=== PATIENT | female | born 1985 | race Caucasian/White ===

== ENCOUNTER 2016-05-18 17:05 | Emergency (ER) | payer OTHER ==
[2016-05-18 17:10] VITALS: BP 108/68; PULSE 72; TEMP 97.4; BMI 28.2
--- NOTE | 2016-05-18 17:30 | PDOC ---
History of Present Illness - General Chief Complaint: Injury Stated Complaint: INJURY Time Seen by Provider: 05/18/16 17:15 History Source: Patient Exam Limitations: No Limitations - History of Present Illness Initial Comments: CHIEF COMPLAINT: 30 y/o afebrile female with no significant PMH c/o back pain s /p fall yesterday. HISTORY OF PRESENT ILLNESS: The patient states that she was sitting in her chair at work and leaned back. When she leaned back the chair fell backwards and landed on her back in the chair. The patient states her back really didn't hurt yesterday but this morning it was really sore. She states her low back hurts on both sides and her left upper back hurts. She denies head trauma, LOC , midline neck pain, f/c, n/v/d, CP, SOB, midline LBP, saddle anesthesia, bowel Vital signs on arrival are within normal limits. REVIEW OF SYSTEMS: GENERAL/CONSTITUTIONAL: No fever/chills. No weakness. No weight change. HEAD, EYES, EARS, NOSE AND THROAT: No change in vision. No ear pain or discharge. No sore throat. GENITOURINARY: No dysuria, frequency, or change in urination. MUSCULOSKELETAL: No joint or muscle swelling or pain. No neck pain. +upper and lower back pain. SKIN: No rash or easy bruising. NEUROLOGIC: No headache, vertigo, loss of consciousness, or loss of sensation. PHYSICAL EXAM: GENERAL: The patient is awake, alert, and fully oriented, in no acute distress. She is ambulatory but sits down slowly. HEAD: Normal with no signs of trauma. ENT: Pupils equal, round and reactive to light, extraocular movements intact, sclera anicteric, conjunctiva clear. NECK: Full ROM of cervical spine without pain. EXTREMITIES: Normal range of motion, no edema. BACK: No midline lumbar, thoracic or cervical spine TTP or step offs. TTP of left cervical paravertebral muscles. TTP of b/l lumbar paravertebral muscles. NEUROLOGICAL: Normal speech, normal gait. CN II-XII grossly intact. No saddle anesthesia. PSYCH: Normal mood, normal affect. SKIN: Warm, dry, normal turgor, no rashes or lesions noted. Past History - Past Medical History Allergies/Adverse Reactions: Allergies Allergy/AdvReac Type Severity Reaction Status Date / Time No Known Allergies Allergy Verified 05/18/16 17:07 Home Medications: Ambulatory Orders Metoprolol Tartrate [Lopressor] 25 mg PO DAILY 08/15/12 Cardiac Disorders: Yes (OPEN HEART SX, PULMONARY STENOSIS) - Surgical History Cardiac Surgery: Yes (OPEN HEART SX) - Psycho/Social/Smoking Cessation Hx Anxiety: No Suicidal Ideation: No Smoking Status: Yes Smoking History: Current every day smoker Have you smoked in the past 12 months: Yes Number of Cigarettes Smoked Daily: 6 Information on smoking cessation initiated: Yes 'Breaking Loose' booklet given: 05/18/16 Hx Alcohol Use: No Drug/Substance Use Hx: No Substance Use Type: None *Physical Exam - Vital Signs Last Vital Signs Temp Pulse Resp BP Pulse Ox 97.4 F L 72 18 108/68 100 05/18/16 17:07 05/18/16 17:07 05/18/16 17:07 05/18/16 17:07 05/18/16 17:07 Medical Decision Making - Medical Decision Making A/P: 30 y/o female with upper and lower back pain that is musculoskeletal in nature s/p fall yesterday. Plan is as follows: 1. hcg 2. Xray cervical and lumbar spine hcg - negative IM Toradol ordered Xray cervical spine IMPRESSION: STraightening; otherwise normal study xray lumbar spine IMPRESSION: Normal study. Gave patient her results. Suggested 600mg of Ibuprofen every 6 hours with food for pain, heating pad, massage and stretching. Pt also instructed to avoid heavy lifting, follow up with her PCP and return to the ER with any worsening or concerning symptoms. The patient verbalizes understanding of all instructions, has no further questions and is awaiting discharge. *DC/Admit/Observation/Transfer Diagnosis at time of Disposition: Back pain Qualifiers: Chronicity: acute Back pain laterality: bilateral Sciatica presence: without sciatica - Discharge Dispostion Disposition: HOME Condition at time of disposition: Good - Referrals Referrals: Joselin Land MD [Primary Care Provider] - - Patient Instructions Printed Discharge Instructions: DI for Low Back Pain, DI for Thoracic Back Pain Additional Instructions: Discharge Instructions: -Take 600mg of Ibuprofen every 6 hours with food for pain -Use heating pad and massage to help with back pain -Avoid heavy lifting -Follow up with your doctor -Return to the ER with any worsening or concerning symptoms
[2016-05-18] MEDS ORDERED: KETOROLAC TROMETHAMINE 60 MG/2 ML VIAL IM ONE (17:44)
[2016-05-18] MEDS ORDERED: KETOROLAC TROMETHAMINE 60 MG/2 ML VIAL ONE (17:50)
== END 2016-05-18 18:52 | disposition home or self-care (01) ==
LOC: JERFT 17:05
PROC: 3E0233Z Introduction of Anti-inflammatory into Muscle, Percutaneous Approach (ICD-10-PCS; principal; 2016-05-18)
DX: M54.89 Other dorsalgia (principal); F17.210 Nicotine dependence, cigarettes, uncomplicated; Q25.6 Stenosis of pulmonary artery; I51.9 Heart disease, unspecified
CPT/HCPCS: 72050-TC; 72100-TC; 84703; 99281-25

== ENCOUNTER 2020-01-23 22:38 | Emergency (ER) | payer BC ==
[2020-01-23 22:45] VITALS: BP 138/59; PULSE 105; TEMP 97.9; BMI 29.9
--- NOTE | 2020-01-23 23:02 | PDOC ---
History of Present Illness - General Chief Complaint: Pain, Acute Stated Complaint: FALL Time Seen by Provider: 01/23/20 22:53 History Source: Patient Exam Limitations: No Limitations - History of Present Illness Initial Comments: 01/23/20 23:03 HISTORY OF PRESENT ILLNESS: 34-year-old woman past medical history of pulmonary stenosis status post repair presents emergency department for evaluation of right knee pain for 2 weeks status post fall. Patient reports she was playing with her child when she lost her balance falling to the ground landing on her hands and knees on a hardwood floor. Patient reports she had swelling to both knees but is concerned as the right knee has continued to be swelling and she has a "burning sensation" to her right knee. She states approximately 1 week ago she was playing with her child when he bumped into your causing her to fall to the ground with her right knee. No recent travel or sick contacts. PAST MEDICAL HISTORY: See HPI SURGICAL HISTORY: Denies ALLERGIES: No known drug allergies REVIEW OF SYSTEMS General/Constitutional: Denies fever or chills. Denies weakness, weight change. HEENT: Denies change in vision. Denies ear pain or discharge. Denies sore throat. Cardiovascular: Denies chest pain or shortness of breath. Respiratory: Denies cough, wheezing, or hemoptysis. Gastrointestinal: Denies nausea, vomiting, diarrhea or constipation. Denies rectal bleeding. Genitourinary: Denies dysuria, frequency, or change in urination. Musculoskeletal: See HPI Skin and breasts: Denies rash or easy bruising. Neurologic: Denies headache, vertigo, loss of consciousness, or loss of sensation. Psychiatric: Denies depression or anxiety. Endocrine: Denies increased thirst. Denies abnormal weight change. Hematologic/Lymphatic: Denies anemia, easy bleeding, or history of blood clots. Allergic/Immunologic: Denies hives or skin allergy. Denies latex allergy. PHYSICAL EXAM General Appearance: Well-appearing, appropriately dressed. No apparent distress, no intoxication. Vascular Pulses: Dorsalis-Pedis (R): 2+, Dorsalis-Pedis (L): 2+ Musculoskeletal/Extremities: Normal inspection. No bony tenderness to extremities, pedal edema, erythema or deformity. Tenderness present in the suprapatellar region of the right knee. Able to fully extend his right knee in flexion greater than 90 degrees performed actively. Ambulatory without difficulty. Neurovascularly intact. Integumentary: Appropriate color, dry, warm. No cyanosis, erythema, jaundice or rash Past History - Medical History Allergies/Adverse Reactions: Allergies Allergy/AdvReac Type Severity Reaction Status Date / Time No Known Allergies Allergy Verified 05/18/16 17:07 Home Medications: Ambulatory Orders Metoprolol Tartrate [Lopressor] 25 mg PO DAILY 08/15/12 Cardiac Disorders: Yes (OPEN HEART SX, PULMONARY STENOSIS) COPD: No - Surgical History Cardiac Surgery: Yes (OPEN HEART SX) - Reproductive History Is Patient Now?: No - Psycho-Social/Smoking History Smoking Status: Yes Smoking History: Current every day smoker Have you smoked in the past 12 months: Yes Number of Cigarettes Smoked Daily: 9 Information on smoking cessation initiated: No 'Breaking Loose' booklet given: 05/18/16 - Substance Abuse Hx (Audit-C & DAST Scrn) How often the patient has a drink containing alcohol: Monthly or less How often the patient has six or more drinks on one occasion: Less than monthly Score: In Men: 4 or > Positive; In Women: 3 or > Positive: 2 Screen Result (Pos requires Nsg. Audit-10AR): Negative In the last yr the pt used illegal drug/Rx for NonMed reason: No Score: Yes response is considered Positive: 0 Screen Result (Positive result requires Nsg. DAST-10): Negative *Physical Exam - Vital Signs Last Vital Signs Temp Pulse Resp BP Pulse Ox 97.9 F 105 H 19 138/59 L 100 01/23/20 22:41 01/23/20 22:41 01/23/20 22:41 01/23/20 22:41 01/23/20 22:41 Medical Decision Making - Medical Decision Making 01/23/20 23:06 A/P: 34-year-old woman with persistent right knee pain status post fall 2 weeks ago Tenderness presents to the suprapatellar region of right knee Full extension of the right knee and flexion greater than 90 degrees obtained actively X-rays Patient is refusing analgesia at this time Reassess Anticipate discharge with orthopedic follow-up 01/23/20 23:26 X-ray of the right knee as read by me: No acute fractures or dislocations present. [place] view reveals normal-appearing patella. Questionable joint effusion present in the suprapatellar space. Likely needs MRI for continued evaluation Discharge home with orthopedic follow-up Portions of this note have been documented using voice recognition software. As a result, errors may occur in the director institution process. Effort has been made to correct all grammatical and director institution error, but some may have been missed which may produce sporadic inaccurate director institution or nonsensical phrases. Discharge - Discharge Information Problems reviewed: Yes Clinical Impression/Diagnosis: Right knee pain Qualifiers: Chronicity: acute Qualified Code(s): M25.561 - Pain in right knee Condition: Stable Disposition: HOME - Admission No - Follow up/Referral Referrals: Joselin Land MD [Primary Care Provider] - Ulices Murrieta DO [Staff Physician] - - Patient Discharge Instructions Additional Instructions: [email or web address] You be given a referral for an orthopedist. Call to schedule appointment for reevaluation of your pain. Your emergency department visit is incomplete until you follow-up with your regular doctor. Take Tylenol 2-500 mg tablets every 6 hours as needed for pain. Take Motrin 3-200 mg tablets every 6 hours as needed for pain. These medications do not require a prescription as they are [id number]. Apply ice to affected areas to help relieve pain. Do not leave ice on for more than 20 minutes at a time. Return to the emergency department for any new or worsening symptoms. Thank you very much for choosing us to provide your emergent health care needs. - Post Discharge Activity Work/Back to School Note: Back to Work
--- OUTSIDE RECORDS SUMMARY | 2020-01-24 07:25 | XMS ---
:1985 Author Organization [facility] Care Team Providers Name Role Phone Coloka-Kump, Rodika DO Unavailable Unavailable Coloka-Kump, Rodika DO Unavailable Unavailable Coloka-Kump, Rodika DO Unavailable Unavailable Coloka-Kump, Rodika DO Unavailable Unavailable Coloka-Kump, Rodika DO Unavailable Unavailable Coloka-Kump, Rodika DO Unavailable Unavailable Coloka-Kump, Rodika DO Unavailable Unavailable Coloka-Kump, Rodika DO Unavailable Unavailable Coloka-Kump, Rodika DO Unavailable Unavailable Coloka-Kump, Rodika DO Unavailable Unavailable Coloka-Kump, Rodika DO Unavailable Unavailable Coloka-Kump, Rodika DO Unavailable Unavailable Coloka-Kump, Rodika DO Unavailable Unavailable Coloka-Kump, Rodika DO Unavailable Unavailable Coloka-Kump, Rodika DO Unavailable Unavailable Coloka-Kump, Rodika DO Unavailable Unavailable Coloka-Kump, Rodika DO Unavailable Unavailable Re-disclosure Warning The records that you are about to access may contain information from federally- assisted alcohol or drug abuse programs. If such information is present, then the following federally mandated warning applies: This information has been disclosed to you from records protected by federal confidentiality rules (42 CFR part 2). The federal rules prohibit you from making any further disclosure of this information unless further disclosure is expressly permitted by the written consent of the person to whom it pertains or as otherwise permitted by 42 CFR part 2. A general authorization for the release of medical or other information is NOT sufficient for this purpose. The Federal rules restrict any use of the information to criminally investigate or prosecute any alcohol or drug abuse patient.The records that you are about to access may contain highly sensitive health information, the redisclosure of which is protected by Article 27-F of the [facility] Public Health law. If you continue you may haveaccess to information: Regarding HIV / AIDS; Provided by facilities licensed or operated by the [facility] Office of Mental Health; or Provided by the [facility] Office for People With Developmental Disabilities. If such information is present, then the following [facility] mandated warning applies: This information has been disclosed to you from confidential records which are protected by state law. State law prohibits you from making any further disclosure of this information without the specific written consent of the person to whom it pertains, or as otherwise permitted by law. Any unauthorized further disclosure in violation of state law may result in a fine or fpc sentence or both. A general authorization for the release of medical or other information is NOT sufficient authorization for further disclosure. Allergies and Adverse Reactions Type Description Substance Reaction Status Data Source(s ) Drug allergy Valtrex valacyclovir swollen lip Active eCW1 ([facility]) Drug allergy Percocet acetaminophen / Unknown Active eCW1 (S aint oxycodone [facility]) Adverse Reaction Percocet Percocet Info Not Active eCW1 ([facility]) Adverse Reaction Valtrex Valtrex swollen Active eCW1 ([facility]) Adverse Reaction Percocet Percocet Info Not Active eCW1 ( int [facility]) Adverse Reaction Valtrex Valtrex swollen Active eCW1 ([facility]) Drug allergy Percocet acetaminophen / Unknown Active eCW1 (S aint oxycodone [facility]) No Information No Information No Information eC W1 ([facility]) No Information No Information No Information eC W1 ([facility]) No Information No Information No Information eC W1 ([facility]) No Information No Information No Information eC W1 ([facility]) No Information No Information No Information eC W1 ([facility]) No Information No Information No Information eC W1 ([facility]) No Information No Information No Information eC W1 ([facility]) No Information No Information No Information eC W1 ([facility]) No Information No Information No Allergy eCW1 ( [facility]) Propensity to Propensity to No Known allergies eCW1 ([facility] adverse adverse [facility] reactions reactions Medical (disorder) (disorder) Practice PC) Propensity to Propensity to No Known allergies eCW1 ([facility] adverse adverse [facility]ago reactions reactions Medical (disorder) (disorder) Practice PC) Propensity to Propensity to No Known allergies eCW1 ([facility] adverse adverse [facility]ago reactions reactions Medical (disorder) (disorder) Practice PC) Propensity to Propensity to No Known allergies eCW1 ([facility] adverse adverse [facility]ago reactions reactions Medical (disorder) (disorder) Practice PC) Propensity to Propensity to No Known allergies eCW1 ([facility] adverse adverse Mago reactions reactions Medical (disorder) (disorder) Practice PC) Propensity to Propensity to No Known allergies eCW1 ([facility] adverse adverse [facility]ago reactions reactions Medical (disorder) (disorder) Practice PC) Propensity to Propensity to No Known allergies eCW1 ([facility] adverse adverse Mago reactions reactions Medical (disorder) (disorder) Practice PC) Propensity to Propensity to No Known allergies eCW1 ([facility] adverse adverse Mago reactions reactions Medical (disorder) (disorder) Practice PC) Propensity to Propensity to No Known allergies eCW1 ([facility] adverse adverse Mago reactions reactions Medical (disorder) (disorder) Practice PC) Propensity to Propensity to No Known allergies eCW1 ([facility] adverse adverse Mago reactions reactions Medical (disorder) (disorder) Practice PC) Encounters Encounter Providers Location Date Indications Data Source(s ) (TEL) [address] 01/11/2020 eCW1 ([facility] 12:00:00 [facility] Medic al AM EDT Practice PC) (TEL) [address] 12/06/2019 eCW1 ([facility] 12:00:00 [facility] al AM EDT Practice PC) Outpatient [address] 11/13/2019 eCW1 ([facility] 12:00:00 [facility] Medic al AM EDT Practice PC) (TEL) [address] 10/16/2019 eCW1 ([facility] 12:00:00 [facility] Medic al AM EDT Practice PC) (TEL) [address] 10/05/2019 eCW1 ([facility] 12:00:00 [facility] Medic al AM EDT Practice PC) Outpatient [address] 10/04/2019 eCW1 ([facility] 12:00:00 [facility] al AM EDT Practice PC) (TEL) [address] 09/27/2019 eCW1 ([facility] 12:00:00 [facility] al AM EDT Practice PC) [address] 09/25/2019 eCW1 ([facility] 12:00:00 [facility] Medic al AM EDT Practice PC) [address] 09/12/2019 eCW1 ([facility] 12:00:00 [facility] Medic al AM EDT Practice PC) [address] 09/03/2019 eCW1 ([facility] 12:00:00 [facility] Medic al AM EDT Practice PC) [address] 08/21/2019 eCW1 ([facility] 12:00:00 [facility] Medic al AM EDT Practice PC) [address] 07/11/2019 eCW1 ([facility] 12:00:00 [facility] Medic al AM EDT Practice PC) [address] 05/15/2019 eCW1 ([facility] 12:00:00 [facility] Medic al AM EST Practice PC) [address] 05/08/2019 eCW1 ([facility] 12:00:00 [facility] Medic al AM EST Practice PC) [address] 05/03/2019 eCW1 ([facility] 12:00:00 [facility] Medic al AM EST Practice PC) [address] 05/03/2019 eCW1 ([facility] 12:00:00 [facility] Medic al AM EST Practice PC) [address] 04/26/2019 eCW1 ([facility] 12:00:00 [facility] Medic al AM EST Practice PC) [address] 04/20/2019 eCW1 ([facility] 12:00:00 [facility] Medic al AM EST Practice PC) [address] 02/07/2019 eCW1 ([facility] 12:00:00 [facility] Medic al AM EDT Practice PC) [address] 02/07/2019 eCW1 ([facility] 12:00:00 [facility] Medic al AM EDT Practice PC) [address] 02/06/2019 eCW1 ([facility] 12:00:00 [facility] Medic al AM EDT Practice PC) [address] 02/06/2019 eCW1 ([facility] 12:00:00 [facility] Medic al AM EDT Practice PC) [address] 01/24/2019 eCW1 ([facility] 12:00:00 [facility] Medic al AM EDT Practice PC) [address] 11/22/2018 eCW1 ([facility] 12:00:00 [facility] Medic al AM EDT Practice PC) [address] 11/13/2018 eCW1 ([facility] 12:00:00 [facility] Medic al AM EDT Practice PC) [address] 10/31/2018 eCW1 ([facility] 12:00:00 [facility] al AM EDT Practice PC) [address] 08/21/2018 eCW1 ([facility] 12:00:00 [facility] Medic al AM EDT - Practice PC) 08/21/2018 12:00:00 AM EDT [address] 08/14/2018 eCW1 ([facility] 01:23:00 [facility] Medic al PM EDT - Practice PC) 08/14/2018 01:23:00 PM EDT [address] 08/14/2018 eCW1 ([facility] 01:22:00 [facility] Medic al PM EDT - Practice PC) 08/14/2018 01:22:00 PM EDT [address] 08/07/2018 eCW1 ([facility] 03:24:00 [facility] Medic al PM EDT - Practice PC) 08/07/2018 03:24:00 PM EDT [address] 08/03/2018 eCW1 ([facility] 10:15:00 [facility] Medic al AM EDT - Practice PC) 08/03/2018 10:15:00 AM EDT [address] 07/28/2018 eCW1 ([facility] 12:00:00 [facility] Medic al PM EDT - Practice PC) 07/28/2018 12:00:00 PM EDT [address] 07/21/2018 eCW1 ([facility] 10:00:00 [facility] Medic al AM EDT - Practice PC) 07/21/2018 10:00:00 AM EDT [address] 05/04/2018 eCW1 ([facility] 01:30:00 [facility] Medic al PM EST - Practice PC) 05/04/2018 01:30:00 PM EST [address] 04/24/2018 eCW1 ([facility] 01:40:00 [facility] Medic al PM EST - Practice PC) 04/24/2018 01:40:00 PM EST [address] 04/12/2018 eCW1 ([facility] 12:00:00 [facility] Medic al AM EST Practice PC) [address] 04/12/2018 eCW1 ([facility] 12:00:00 [facility] Medic al AM EST Practice PC) [address] 04/11/2018 eCW1 ([facility] 05:20:00 [facility]ago Medic al PM EST - Practice PC) 04/11/2018 05:20:00 PM EST [address] 04/11/2018 eCW1 ([facility] 04:30:00 [facility] Medic al PM EST - Practice PC) 04/11/2018 04:30:00 PM EST Attender: Joselin 04/04/2018 NEXTGEN [facility] 01[facility]17:00 [facility]ago Me dical PM EST - Center) 04/04/2018 01:17:00 PM EST [address] 03/31/2018 eCW1 ([facility] 01:53:00 [facility]ago Medic al PM EST - Practice PC) 03/31/2018 01:53:00 PM EST [address] 03/30/2018 eCW1 ([facility] 11:30:00 Mago Medic al AM EST - Practice PC) 03/30/2018 11:30:00 AM EST [address] 01/09/2018 eCW1 ([facility] 12:00:00 [facility] Medic al AM EDT Practice PC) [address] 01/03/2018 eCW1 ([facility] 12:00:00 [facility] Medic al AM EDT Practice PC) [address] 01/02/2018 eCW1 ([facility] 12:00:00 [facility] Medic al AM EDT Practice PC) [address] 11/22/2017 eCW1 ([facility] 12:00:00 [facility] Medic al AM EDT Practice PC) [address] 11/14/2017 eCW1 ([facility] 12:00:00 [facility] Medic al AM EDT Practice PC) [address] 11/07/2017 eCW1 ([facility] 12:00:00 [facility] Medic al AM EDT Practice PC) [address] 10/06/2017 eCW1 ([facility] 12:00:00 [facility] Medic al AM EDT Practice PC) [address] 09/16/2017 eCW1 (S nt [facility] 12:00:00 Mago Medic al AM EDT Practice PC) [address] 07/12/2017 eCW1 ([facility] 12:00:00 M[facility] Medic al AM EDT Practice PC) [address] 07/06/2017 eCW1 ([facility] 12:00:00 [facility] Medic al AM EDT Practice PC) [address] 06/17/2017 eCW1 (S nt [facility] 12:00:00 Mago Medi eh AM EST Practice PC) [address] 04/08/2017 eCW1 ([facility] 12:00:00 Mago Medic al AM EST Practice PC) [address] 02/24/2017 eCW1 ([facility] 12:00:00 Mago Medic al AM EDT Practice PC) [address] 11/22/2016 eCW1 ([facility] 12:00:00 Mago Medic al AM EDT Practice PC) [address] 11/02/2016 eCW1 ([facility] 12:00:00 M[facility] Medic al AM EDT Practice PC) [address] 10/12/2016 [facility] AM EDT Practice PC ) [address] 10/12/2016 eCW1 [facility] AM EDT Practice PC ) [address] 09/21/2016 eCW1 ([facility] 12:00:00 [facility] Medic al AM EDT Practice PC) [address] 09/21/2016 eCW1 ([facility] 12:00:00 M[facility] Medic al AM EDT Practice PC) [address] 09/08/2016 [facility]CW1 [facility]un s [facility] AM EDT Practice PC ) [address] 08/30/2016 eCW1 ([facility] 12:00:00 Mago Medic al AM EDT Practice PC) [address] 08/25/2016 eCW1 ([facility] 12:00:00 [facility] Medic al AM EDT Practice PC) [address] 06/25/2016 [facility]CW[facility] AM EST Practice PC) [address] 06/21/2016 [facility]CW1 [facility] AM EST Practice PC) [address] 03/31/2016 eCW1 ([facility] 12:00:00 Mago Medic al AM EST Practice PC) [address] 01/06/2016 eCW1 [facility] AM EDT Practice PC) [address] 12/15/2015 eCW1 ([facility] al AM EDT Practice PC) [address] 12/03/2015 eCW1 ([facility] al AM EDT Practice PC) [address] 10/29/2015 eCW1 ([facility] al AM EDT Practice PC) [address] 09/19/2015 eCW1 ([facility] AM EDT Practice PC) [address] 04/28/2015 eCW1 [facility] AM EST Practice PC) Immunizations Vaccine Date Status Description Data Source(s) HPV9 11/13/2018 completed eCW1 ([facility] 06:[facility]00 PM EDT [facility] Prac manuel PC) HPV9 11/13/2018 completed eCW1 ([facility] 06:55:00 PM EDT Medical Prac manuel PC) HPV9 11/13/2018 completed eCW1 ([facility] 06:55:00 PM EDT Medical Prac manuel PC) HPV9 11/13/2018 completed eCW1 ([facility] 06:55:00 PM EDT Medical Prac manuel PC) IIV3. This vaccine code is 06/15/2017 completed e CW1 ([facility] one of two which replace 09:10:00 AM EST Medical Practice PC) CVX 15, influenza, split virus. IIV3. This vaccine code is 06/15/2017 completed e CW1 ([facility] one of two which replace 09:10:00 AM EST Medical Practice PC) CVX 15, influenza, split virus. IIV3. This vaccine code is 06/15/2017 completed e CW1 ([facility] one of two which replace 09:10:00 AM EST Medical Practice PC) CVX 15, influenza, split virus. IIV3. This vaccine code is 09/08/2016 completed e CW1 ([facility] one of two which replace 09:09:00 AM EDT Medical Practice PC) CVX 15, influenza, split virus. IIV3. This vaccine code is 09/08/2016 completed e CW1 ([facility] one of two which replace 09:09:00 AM EDT Medical Practice PC) CVX 15, influenza, split virus. IIV3. This vaccine code is 09/08/2016 completed e CW1 ([facility] one of two which replace 09:09:00 AM EDT Medical Practice PC) CVX 15, influenza, split virus. Tdap 08/30/2016 completed eCW1 ([facility] 12:23:00 AM EDT Medical Prac manuel PC) Tdap 08/30/2016 completed eCW1 ([facility] 12:23:00 AM EDT Medical Prac manuel PC) Tdap 08/30/2016 completed eCW1 ([facility] 12:23:00 AM EDT Medical Prac manuel PC) No Known Immunizations completed eCW1 ([facility]) No Known Immunizations completed eCW1 ([facility]) No Known Immunizations completed eCW1 ([facility]) No Known Immunizations completed eCW1 ([facility]) No Known Immunizations completed eCW1 ([facility] No Known Immunizations completed eCW1 ([facility]) No Known Immunizations completed eCW1 ([facility]) No Known Immunizations completed eCW1 ([facility]) No Known Immunizations completed eCW1 ([facility]) No Known Immunizations completed eCW1 ([facility]) No Known Immunizations completed eCW1 ([facility]) Medications Medication Brand Start Product Dose Route Administrative Pharmacy [facility] Indications Reaction Description Data Name Date Form Instructions Instructions Source(s) valacyclovi Valtre .0 active Valtrex 500 eCW1 r 500 MG x 500 2019 {tabl MG ([facility] Oral Tablet MG 12:00: et} Arun españa [Valtrex] 00 AM Medical Valtrex 500 EDT Practice MG PC) valacyclovi Valtre .0 active Valtrex 500 eCW1 r 500 MG x 500 2019 {tabl MG ([facility] Oral Tablet MG 12:00: et} Arun españa [Valtrex] 00 AM Medical Valtrex 500 EDT Practice MG PC) Fluconazole Flucon .0 active Flucona zole eCW1 150 MG Oral azole 2020 {tabl 150 MG ([facility] nt Tablet 150 MG 12:00: et} 00 AM Medical EDT Practice PC) Fluconazole Flucon .0 active Flucona zole eCW1 150 MG Oral azole 2020 {tabl 150 MG ([facility] nt Tablet 150 MG 12:00: et} 00 AM Medical EDT Practice PC) Sulfamethox Bactri .0 active Bactrim DS eCW1 azole 800 m DS 2020 {tabl 800-160 MG (Sa int MG / 800-16 12:00: et} [facility]ago Trimethopri 0 MG 00 AM Medical m 160 MG EDT Practice Oral Tablet PC) [Bactrim] Bactrim DS 800-160 MG Fluconazole Flucon .0 active Flucona zole eCW1 150 MG Oral azole 2019 {tabl 150 MG ([facility] nt Tablet 150 MG 12:00: et} Medical EDT Practice ) Sulfamethox Bactri .0 active Bactrim DS eCW1 azole 800 m DS 2020 {tabl 800-160 MG (Sa int MG / 800-16 12:00: et} [facility] Trimethopri 0 MG 00 AM Medical m 160 MG EDT Practice Oral Tablet PC) [Bactrim] Bactrim DS 800-160 MG Fluconazole Flucon .0 active Flucona zole eCW1 150 MG Oral azole 2019 {tabl 150 MG ([facility] nt Tablet 150 MG 12:00: et} Medical EDT Practice PC) Fluconazole Flucon .0 active Flucona zole eCW1 150 MG Oral azole 2019 {tabl 150 MG ([facility] nt Tablet 150 MG 12:00: et} [facility] Medical EDT Practice PC) Sulfamethox Bactri .0 active Bactrim DS eCW1 azole 800 m DS 2020 {tabl 800-160 MG (Sa int MG / 800-16 12:00: et} [facility] Trimethopri 0 MG 00 AM Medical m 160 MG EDT Practice Oral Tablet PC) [Bactrim] Bactrim DS 800-160 MG Fluconazole Flucon .0 active Flucona zole eCW1 150 MG Oral azole 2019 {tabl 150 MG ([facility] nt Tablet 150 MG 12:00: et} [facility] Medical EDT Practice PC) Sulfamethox Bactri .0 active Bactrim DS eCW1 azole 800 m DS 2020 {tabl 800-160 MG (Sa int MG / 800-16 12:00: et} [facility] Trimethopri 0 MG 00 AM Medical m 160 MG EDT Practice Oral Tablet PC) [Bactrim] Bactrim DS 800-160 MG Sulfamethox Bactri .0 active Bactrim DS eCW1 azole 800 m DS 2020 {tabl 800-160 MG (Sa int MG / 800-16 12:00: et} [facility] Trimethopri 0 MG 00 AM Medical m 160 MG EDT Practice Oral Tablet PC) [Bactrim] Bactrim DS 800-160 MG Sulfamethox Bactri 10/03/ 1.0 active Bactrim DS eCW1 azole 800 m DS 2020 {tabl 800-160 MG (Sa int MG / 800-16 12:00: et} [facility] Trimethopri 0 MG 00 AM Medical m 160 MG EDT Practice Oral Tablet PC) [Bactrim] Bactrim DS 800-160 MG Albuterol Albute 09/26/ 3.0 active Albuterol eCW1 0.83 MG/ML rol 2019 {ml_a Sulfate (2.5 ([facility] Inhalant Sulfat 12:00: s_nee MG/3ML) [facility] e (2.5 00 AM ded} 0.083% Medica l Albuterol MG/3ML EDT Practice Sulfate ) PC) (2.5 0.083% MG/3ML) 0.083% Nebulizer - Nebuli 09/26/ active Nebuliz er - eCW1 2019 ([facility] 12:00: [facility] 00 AM Medical EDT Practice PC) Nebulizer - Nebuli 09/26/ active Nebuliz er - eCW1 2019 ([facility] 12:00: [facility]ago 00 AM Medical EDT Practice PC) Albuterol Albute 09/26/ 3.0 active Albuterol eCW1 0.83 MG/ML rol 2019 {ml_a Sulfate (2.5 ([facility] Inhalant Sulfat 12:00: s_nee MG/3ML) [facility] e (2.5 00 AM ded} 0.083% Medica l Albuterol MG/3ML EDT Practice Sulfate ) PC) (2.5 0.083% MG/3ML) 0.083% Nebulizer - Nebuli 09/26/ active Nebuliz er - eCW1 2019 ([facility] 12:00: [facility]ago 00 AM Medical EDT Practice PC) Albuterol Albute 09/26/ 3.0 active Albuterol eCW1 0.83 MG/ML rol 2019 {ml_a Sulfate (2.5 ([facility] Inhalant Sulfat 12:00: s_nee MG/3ML) [facility] Solution e (2.5 00 AM ded} 0.083% Medica l Albuterol MG/3ML EDT Practice Sulfate ) PC) (2.5 0.083% MG/3ML) 0.083% Albuterol Albute 09/26/ 3.0 active Albuterol eCW1 0.83 MG/ML rol 2019 {ml_a Sulfate (2.5 ( Inhalant Sulfat 12:00: s_nee MG/3ML) [facility] e (2.5 00 AM ded} 0.083% Medica l Albuterol MG/3ML EDT Practice Sulfate ) PC) (2.5 0.083% MG/3ML) 0.083% Albuterol Albute 09/26/ 3.0 active Albuterol eCW1 0.83 MG/ML rol 2019 {ml_a Sulfate (2.5 ( Inhalant Sulfat 12:00: s_nee MG/3ML) [facility] e (2.5 00 AM ded} 0.083% Medica l Albuterol MG/3ML EDT Practice Sulfate ) PC) (2.5 0.083% MG/3ML) 0.083% Albuterol Albute 09/26/ 3.0 active Albuterol eCW1 0.83 MG/ML rol 2019 {ml_a Sulfate (2.5 ( Inhalant Sulfat 12:00: s_nee MG/3ML) [facility] Solution e (2.5 00 AM ded} 0.083% Medica l Albuterol MG/3ML EDT Practice Sulfate ) PC) (2.5 0.083% MG/3ML) 0.083% Nebulizer - Nebuli 09/26/ active Nebuliz er - eCW1 2019 ( 12:00: Mago 00 AM Medical EDT Practice PC) Albuterol Albute 09/26/ 3.0 active Albuterol eCW1 0.83 MG/ML rol 2020 {ml_a Sulfate (2.5 ( Inhalant Sulfat 12:00: s_nee MG/3ML) [facility] Solution e (2.5 00 AM ded} 0.083% Medica l Albuterol MG/3ML EDT Practice Sulfate ) PC) (2.5 0.083% MG/3ML) 0.083% Nebulizer - Nebuli 09/26/ active Nebuliz er - eCW1 zer - 2020 ([facility] 12:00: [facility] 00 AM Medical EDT Practice PC) Nebulizer - Nebuli 09/26/ active Nebuliz er - eCW1 zer - 2020 ([facility] 12:00: [facility] 00 AM Medical EDT Practice PC) Nebulizer - Nebuli 09/26/ active Nebuliz er - eCW1 zer - 2020 ([facility] 12:00: [facility]ago 00 AM Medical EDT Practice PC) Albuterol Albute 2.0 active Albuterol eCW1 Sulfate HFA rol 2020 {puff Sulfate HFA ([facility] 108 (90 Sulfat 12:00: s_as_ 108 (90 [place] [facility]) e HFA 00 AM neede Base) Medical MCG/ACT 108 EDT d} MCG/ACT Practice (90 PC) Base) MCG/AC T Albuterol Albute 2.0 active Albuterol eCW1 Sulfate HFA rol 2020 {puff Sulfate HFA ([facility] 108 (90 Sulfat 12:00: s_as_ 108 (90 [place] [facility]) e HFA 00 AM neede Base) Medical MCG/ACT 108 EDT d} MCG/ACT Practice (90 PC) Base) MCG/AC T Albuterol Albute 07/10/ active 2 puffs a s eCW1 Sulfate HFA rol 2020 needed ([facility] 108 (90 Sulfat 12:00: Mago Base) e HFA 00 AM Medical MCG/ACT 108 EDT Practice (90 PC) Base) MCG/AC T Albuterol Albute 07/10/ 2.0 active Albuterol eCW1 Sulfate HFA rol 2020 {puff Sulfate HFA ([facility] 108 (90 Sulfat 12:00: s_as_ 108 (90 [place] [facility]) e HFA 00 AM neede Base) Medical MCG/ACT 108 EDT d} MCG/ACT Practice (90 PC) Base) MCG/AC T Albuterol Albute 2.0 active Albuterol eCW1 Sulfate HFA rol 2020 {puff Sulfate HFA ([facility] 108 (90 Sulfat 12:00: s_as_ 108 (90 [place] [facility]) e HFA 00 AM neede Base) Medical MCG/ACT 108 EDT d} MCG/ACT Practice (90 PC) Base) MCG/AC T Albuterol Albute 07/10/ 2.0 active Albuterol eCW1 Sulfate HFA rol 2020 {puff Sulfate HFA ([facility] 108 (90 Sulfat 12:00: s_as_ 108 (90 [facility]) e HFA 00 AM neede Base) Medical MCG/ACT 108 EDT d} MCG/ACT Practice (90 PC) Base) MCG/AC T Albuterol Albute 07/10/ active 2 puffs a s eCW1 Sulfate HFA rol 2020 needed ([facility] 108 (90 Sulfat 12:00: [facility] Base) e HFA 00 AM Medical MCG/ACT 108 EDT Practice (90 PC) Base) MCG/AC T Albuterol Albute 07/10/ active 2 puffs a s eCW1 Sulfate HFA rol 2019 needed ([facility] 108 (90 Sulfat 12:00: [facility] Base) e HFA 00 AM Medical MCG/ACT 108 EDT Practice (90 PC) Base) MCG/AC T Albuterol Albute 2.0 active Albuterol eCW1 Sulfate HFA rol 2020 {puff Sulfate HFA ([facility] 108 (90 Sulfat 12:00: s_as_ 108 (90 [facility]) e HFA 00 AM neede Base) Medical MCG/ACT 108 EDT d} MCG/ACT Practice (90 PC) Base) MCG/AC T terconazole Tercon .0 suspend Tercon azole eCW1 80 MG azole 2020 {supp ed 80 MG ([facility] 80 MG 12:00: antonia Mago Suppository 00 AM ry_at Medica l Terconazole EST _bedt Practic e 80 MG tootie} PC) terconazole Tercon 05/03/ suspend 1 e CW1 80 MG azole 2020 ed suppository ([facility] 80 MG 12:00: at bedtime [facility] Suppository 00 AM Medical Terconazole EST Practice 80 MG PC) terconazole Tercon .0 suspend Tercon azole eCW1 80 MG azole 2020 {supp ed 80 MG ([facility] 80 MG 12:00: antonia Mago Suppository 00 AM ry_at Medica l Terconazole EST _bedt Practic e 80 MG tootie} PC) terconazole Tercon .0 suspend Tercon azole eCW1 80 MG azole 2020 {supp ed 80 MG ([facility] 80 MG 12:00: antonia Mago Suppository 00 AM ry_at Medica l Terconazole EST _bedt Practic e 80 MG tootie} PC) terconazole Tercon 1 eC W1 80 MG azole 2020 suppository ([facility] 80 MG 12:00: at bedtime [facility] Suppository 00 AM Medical Terconazole EST Practice 80 MG PC) terconazole Tercon 1 eC W1 80 MG azole 2020 suppository ([facility] 80 MG 12:00: at bedtime [facility] Suppository 00 AM Medical Terconazole EST Practice 80 MG PC) terconazole Tercon .0 suspend Tercon azole eCW1 80 MG azole 2020 {supp ed 80 MG ([facility] 80 MG 12:00: antonia Mago Suppository 00 AM ry_at Medica l Terconazole EST _bedt Practic e 80 MG tootie} PC) terconazole Tercon 1 eC W1 80 MG azole 2020 suppository ([facility] 80 MG 12:00: at bedtime [facility] Suppository 00 AM Medical Terconazole EST Practice 80 MG PC) terconazole Tercon .0 suspend Tercon azole eCW1 80 MG azole 2020 {supp ed 80 MG ([facility] 80 MG 12:00: antonia Mago Suppository 00 AM ry_at Medica l Terconazole EST _bedt Practic e 80 MG tootie} PC) terconazole Tercon .0 suspend Tercon azole eCW1 80 MG azole 2020 {supp ed 80 MG ([facility] 80 MG 12:00: antonia Mago Suppository 00 AM ry_at Medica l Terconazole EST _bedt Practic e 80 MG tootie} PC) Codeine Promet .0 suspend Promethazi ne eCW1 Phosphate 2 2018 {ml_a ed -Codeine ( [facility] MG/ML / -Codei 12:00: s_nee 6.25-10 [facility] Promethazin ne 00 AM ded} MG/5ML Medic al e 6.25-1 EDT Practice Hydrochlori 0 PC) de 1.25 MG/5ML MG/ML Oral Solution Promethazin e-Codeine 6.25-10 MG/5ML Codeine Promet 1016/ 5.0 suspend Promethazi ne eCW1 Phosphate 2 ine 2018 {ml_a ed -Codeine ( [facility] MG/ML / -Codei 12:00: s_nee 6.25-10 [facility] Promethazin ne 00 AM ded} MG/5ML Medic al e 6.25-1 EDT Practice Hydrochlori 0 PC) de 1.25 MG/5ML MG/ML Oral Solution Promethazin e-Codeine 6.25-10 MG/5ML Codeine Promet 10/16/ 5.0 suspend Promethazi ne eCW1 Phosphate 2 2018 {ml_a ed -Codeine ( [facility] MG/ML / -Codei 12:00: s_nee 6.25-10 [facility] Promethazin ne 00 AM ded} MG/5ML Medic al e 6.25-1 EDT Practice Hydrochlori 0 PC) de 1.25 MG/5ML MG/ML Oral Solution Promethazin e-Codeine 6.25-10 MG/5ML Codeine Promet 10/16/ 5.0 suspend Promethazi ne eCW1 Phosphate 2 ine 2018 {ml_a ed -Codeine ( [facility] MG/ML / -Codei 12:00: s_nee 6.25-10 [facility] Promethazin ne 00 AM ded} MG/5ML Medic al e 6.25-1 EDT Practice Hydrochlori 0 PC) de 1.25 MG/5ML MG/ML Oral Solution Promethazin e-Codeine 6.25-10 MG/5ML Codeine Promet 10/16/ active 5 ml as eCW 1 Phosphate 2 ine 2018 needed ([facility] MG/ML / -Codei 12:00: Mago Promethazin ne 00 AM Medical e 6.25-1 EDT Practice Hydrochlori 0 PC) de 1.25 MG/5ML MG/ML Oral Solution Promethazin e-Codeine 6.25-10 MG/5ML Codeine Promet 10/16/ active 5 ml as eCW 1 Phosphate 2 hazine 2018 needed ([facility] MG/ML / -Codei 12:00: Mago Promethazin ne 00 AM Medical e 6.25-1 EDT Practice Hydrochlori 0 PC) de 1.25 MG/5ML MG/ML Oral Solution Promethazin e-Codeine 6.25-10 MG/5ML Codeine Promet 10/16/ 5.0 suspend Promethazi ne eCW1 Phosphate 2 haz2018 {ml_a ed -Codeine ( [facility] MG/ML / -Codei 12:00: s_nee 6.25-10 [facility] Promethazin ne 00 AM ded} MG/5ML Medic al e 6.25-1 EDT Practice Hydrochlori 0 PC) de 1.25 MG/5ML MG/ML Oral Solution Promethazin e-Codeine 6.25-10 MG/5ML Codeine Promet 10/16/ suspend 5 ml as eC W1 Phosphate 2 hazine 2018 ed needed ([facility] MG/ML / -Codei 12:00: M[facility] Promethazin ne 00 AM Medical e 6.25-1 EDT Practice Hydrochlori 0 PC) de 1.25 MG/5ML MG/ML Oral Solution Promethazin e-Codeine 6.25-10 MG/5ML Codeine Promet 10/16/ 5.0 suspend Promethazi ne eCW1 Phosphate 2 hazine 2018 {ml_a ed -Codeine ( [facility] MG/ML / -Codei 12:00: s_nee 6.25-10 [facility] Promethazin ne 00 AM ded} MG/5ML Medic al e 6.25-1 EDT Practice Hydrochlori 0 PC) de 1.25 MG/5ML MG/ML Oral Solution Promethazin e-Codeine 6.25-10 MG/5ML Codeine Promet 10/16/ active 5 ml as eCW 1 Phosphate 2 hazine 2018 needed ([facility] MG/ML / -Codei 12:00: Mago Promethazin ne 00 AM Medical e 6.25-1 EDT Practice Hydrochlori 0 PC) de 1.25 MG/5ML MG/ML Oral Solution Promethazin e-Codeine 6.25-10 MG/5ML Dextrometho Tussin 10/15/ suspend 10 ml as eCW1 [facility] 2019 ed needed ([facility] Hydrobromid 100-10 12:00: [facility] 2 MG/ML / MG/5ML 00 AM Medic al Guaifenesin EDT Practice 20 MG/ML PC) Oral Solution Tussin DM 100-10 MG/5ML Zithromax Zithro 10/15/ suspend 2 tablet s eCW1 Z-Garry 250 max 2019 ed on the first (S aint MG Z-Garry 12:00: day, then 1 Will hs 250 MG 00 AM tablet daily Medi eh EDT for 4 days Practice PC) Zithromax Zithro 10/15/ suspend Zithroma x eCW1 Z-Garry 250 max 2019 ed Z-Garry 250 MG (S aint MG Z-Garry 12:00: Mago 250 MG 00 AM Medical EDT Practice PC) Dextrometho Tussin 10/15/ active 10 ml a s [address] 2019 needed ([facility] Hydrobromid 100-10 12:00: [facility] 2 MG/ML / MG/5ML 00 AM Medic al Guaifenesin EDT Practice 20 MG/ML PC) Oral Solution Tussin DM 100-10 MG/5ML Zithromax Zithro 10/15/ active 2 tablets eCW1 Z-Garry 250 max 2019 on the first (S aint MG Z-Garry 12:00: day, then 1 Will hs 250 MG 00 AM tablet daily Medi eh EDT for 4 days Practice PC) Zithromax Zithro 10/15/ active 2 tablets eCW1 Z-Garry 250 max 2018 on the first (S aint MG Z-Garry 12:00: day, then 1 Will hs 250 MG 00 AM tablet daily Medi eh EDT for 4 days Practice PC) Dextrometho Tussin 10/15/ 10.0 suspend Tussin DM [address] 2019 {ml_a ed 100-10 ([facility] Hydrobromid 100-10 12:00: s_nee MG/5ML [facility]seph[facility] e 2 MG/ML / MG/5ML 00 AM ded} Medic al Guaifenesin EDT Practice 20 MG/ML PC) Oral Solution Tussin DM 100-10 MG/5ML Zithromax Zithro 10/15/ active 2 tablets eCW1 Z-Garry 250 2018 on the first (S aint MG Z-Garry 12:00: day, then 1 Will hs 250 MG 00 AM tablet daily Medi eh EDT for 4 days Practice ) Dextrometho Tussin 10/15/ 10.0 suspend Tussin DM eCW1 [facility] DM 2018 {ml_a ed 100-10 ([facility] Hydrobromid 100-10 12:00: s_nee MG/5ML J osephs e 2 MG/ML / MG/5ML 00 AM ded} Medic al Guaifenesin EDT Practice 20 MG/ML PC) Oral Solution Tussin DM 100-10 MG/5ML Dextrometho Tussin 10/15/ active 10 ml a s eCW1 [facility] 2019 needed ([facility] Hydrobromid 100-10 12:00: [facility] 2 MG/ML / MG/5ML 00 AM Medic al Guaifenesin EDT Practice 20 MG/ML PC) Oral Solution Tussin DM 100-10 MG/5ML Zithromax Zithro 10/15/ suspend Zithroma x eCW1 Z-Garry 250 max 2018 ed Z-Garry 250 MG (S aint MG Z-Garry 12:00: Mago 250 MG 00 AM Medical EDT Practice PC) Zithromax Zithro 10/15/ suspend Zithroma x eCW1 Z-Garry 250 max 2019 ed Z-Garry 250 MG (S aint MG Z-Garry 12:00: Mago 250 MG 00 AM Medical EDT Practice PC) Dextrometho Tussin 10/15/ active 10 ml a s W1 [facility] DM 2019 needed ([facility] Hydrobromid 100-10 12:00: [facility] 2 MG/ML / MG/5ML 00 AM Medic al Guaifenesin EDT Practice 20 MG/ML PC) Oral Solution Tussin DM 100-10 MG/5ML Zithromax Zithro 10/15/ suspend Zithroma x eCW1 Z-Garry 250 max 2019 ed Z-Garry 250 MG (S aint MG Z-Garry 12:00: Mago 250 MG 00 AM Medical EDT Practice PC) Zithromax Zithro 15/ suspend Zithroma x eCW1 Z-Garry 250 max 2019 ed Z-Garry 250 MG (S aint MG Z-Garry 12:00: Mago 250 MG 00 AM Medical EDT Practice PC) Dextrometho Tussin 10/15/ 10.0 suspend Tussin DM eCW1 [facility] 2019 {ml_a ed 100-10 ([facility] Hydrobromid 100-10 12:00: s_nee MG/5ML J osephs e 2 MG/ML / MG/5ML 00 AM ded} Medic al Guaifenesin EDT Practice 20 MG/ML PC) Oral Solution Tussin DM 100-10 MG/5ML Dextrometho Tussin 15/ 10.0 suspend Tussin DM eCW1 [facility] 2019 {ml_a ed 100-10 ([facility] Hydrobromid 100-10 12:00: s_nee MG/5ML J osephs e 2 MG/ML / MG/5ML 00 AM ded} Medic al Guaifenesin EDT Practice 20 MG/ML PC) Oral Solution Tussin DM 100-10 MG/5ML Dextrometho Tussin 15/ 10.0 suspend Tussin DM [facility] 2019 {ml_a ed 100-10 ([facility] Hydrobromid 100-10 12:00: s_nee MG/5ML J osephs e 2 MG/ML / MG/5ML 00 AM ded} Medic al Guaifenesin EDT Practice 20 MG/ML PC) Oral Solution Tussin DM 100-10 MG/5ML Zithromax Zithro 15/ suspend Zithroma x eCW1 Z-Garry 250 max 2019 ed Z-Garry 250 MG (S aint MG Z-Garry 12:00: Mago 250 MG 00 AM Medical EDT Practice PC) Dextrometho Tussin 15/ 10.0 suspend Tussin DM W1 [facility] 2019 {ml_a ed 100-10 ([facility] Hydrobromid 100-10 12:00: s_nee MG/5ML J osephs e 2 MG/ML / MG/5ML 00 AM ded} Medic al Guaifenesin EDT Practice 20 MG/ML PC) Oral Solution Tussin DM 100-10 MG/5ML Naproxen Naprox 11/22/ active Naproxen 5 eCW1 500 MG Oral en 500 2019 MG ([facility] Tablet MG 12:00: Mago 00 AM Medical EDT Practice PC) Naproxen Naprox 11/22/ active 1 tablet e CW1 500 MG Oral en 500 2019 with food o r ([facility] Tablet MG 12:00: milk as Mago 00 AM needed Medical EDT Practice PC) Naproxen Naprox 11/22/ active 1 tablet e CW1 500 MG Oral en 500 2018 with food o r ([facility] Tablet MG 12:00: milk as Mago 00 AM needed Medical EDT Practice PC) Naproxen Naprox 11/22/ active Naproxen eCW1 500 MG Oral en 500 2019 MG ([facility] Tablet MG 12:00: Mago 00 AM Medical EDT Practice PC) Naproxen Naprox 11/22/ active Naproxen eCW1 500 MG Oral en 500 2019 MG ([facility] Tablet MG 12:00: Mago 00 AM Medical EDT Practice PC) Naproxen Naprox 11/22/ active 1 tablet e CW1 500 MG Oral en 500 2019 with food o r ([facility] Tablet MG 12:00: milk as Mago 00 AM needed Medical EDT Practice PC) Naproxen Naprox 11/22/ active Naproxen eCW1 500 MG Oral en 500 2019 MG ([facility] Tablet MG 12:00: Mago 00 AM Medical EDT Practice PC) Naproxen Naprox 11/22/ active Naproxen eCW1 500 MG Oral en 500 2019 MG ([facility] Tablet MG 12:00: Mago 00 AM Medical EDT Practice PC) Naproxen Naprox 11/22/ active 1 tablet e CW1 500 MG Oral en 500 2019 with food o r ([facility] Tablet MG 12:00: milk as Mago 00 AM needed Medical EDT Practice PC) Naproxen Naprox 11/22/ active 1 tablet e CW1 500 MG Oral en 500 2019 with food o r ([facility] Tablet MG 12:00: milk as Mago 00 AM needed Medical EDT Practice PC) Naproxen Naprox 11/22/ active Naproxen 5 00 eCW1 500 MG Oral en 500 2019 MG ([facility] Tablet MG 12:00: Mago 00 AM Medical EDT Practice PC) Zantac 150 UNK 04/15/ suspend 1 tablet eCW1 MG 2019 ed ([facility] 12:00: Mago 00 AM Medical EDT Practice PC) Zantac 15/ Tablet Orally 150 MG Orally complet 1 tablet eCW1 2018 twice at day ed ([facility] 12:00: Mago 00 AM Medical EDT Practice PC) Zantac 15/ Tablet Orally 150 MG Orally complet 1 tablet eCW1 2018 twice at day ed ([facility] 12:00: Mago 00 AM Medical EDT Practice PC) Zantac 150 UNK 15/ 1.0 suspend Zantac 15 0 eCW1 MG 2019 {tabl ed MG ([facility] 12:00: et} Mago 00 AM Medical EDT Practice PC) Zantac 150 UNK 15/ suspend 1 tablet eCW1 MG 2019 ed ([facility] 12:00: Mago 00 AM Medical EDT Practice PC) Zantac 150 UNK 15/ suspend 1 tablet eCW1 MG 2019 ed ([facility] 12:00: Mago 00 AM Medical EDT Practice PC) Zantac 150 UNK 15/ suspend 1 tablet eCW1 MG 2019 ed ([facility] 12:00: Mago 00 AM Medical EDT Practice PC) Zantac 150 UNK 15/ 1.0 suspend Zantac 15 0 eCW1 MG 2019 {tabl ed MG ([facility] 12:00: et} Mago 00 AM Medical EDT Practice PC) Zantac 150 UNK 08/07/ active 1 tablet e CW1 MG 2019 ([facility] 12:00: Mago 00 AM Medical EDT Practice PC) Zantac 150 UNK 15/ 1.0 suspend Zantac 15 0 eCW1 MG 2019 {tabl ed MG ([facility] 12:00: et} Mago 00 AM Medical EDT Practice PC) Zantac 150 UNK 0415/ suspend 1 tablet eCW1 MG 2019 ed ([facility] 12:00: Mago 00 AM Medical EDT Practice PC) Zantac 150 UNK 15/ 1.0 suspend Zantac 15 0 eCW1 MG 2019 {tabl ed MG ([facility] 12:00: et} Mago 00 AM Medical EDT Practice PC) Zantac 150 UNK 08/07/ 1.0 suspend Zantac 15 0 eCW1 MG 2019 {tabl ed MG ([facility] 12:00: et} Mago 00 AM Medical EDT Practice PC) Zantac 150 UNK 08/07/ suspend 1 tablet eCW1 MG 2019 ed ([facility] 12:00: Mago 00 AM Medical EDT Practice PC) Zantac 150 UNK 08/07/ 1.0 suspend Zantac 15 0 eCW1 MG 2019 {tabl ed MG ([facility] 12:00: et} Mago 00 AM Medical EDT Practice PC) Azithromyci Azithr 08/03/ suspend Azithr omycin eCW1 n 500 MG omycin 2019 ed 500 mg ([facility] Oral Tablet 500 mg 12:00: [facility] Azithromyci 00 AM Medical n 500 mg EDT Practice PC) Azithromyci Azithr 08/03/ suspend Azithr omycin eCW1 n 500 MG omycin 2019 ed 500 mg ([facility] Oral Tablet 500 mg 12:00: [facility] Azithromyci 00 AM Medical n 500 mg EDT Practice PC) Azithromyci Azithr 08/03/ suspend Azithr omycin eCW1 n 500 MG omycin 2019 ed 500 mg ([facility] Oral Tablet 500 mg 12:00: [facility] Azithromyci 00 AM Medical n 500 mg EDT Practice PC) Azithromyci Azithr 08/03/ suspend 2 tab eCW1 n 500 MG omycin 2019 ed ([facility] Oral Tablet 500 mg 12:00: [facility] Azithromyci 00 AM Medical n 500 mg EDT Practice PC) Azithromyci Azithr 08/03/ suspend Azithr omycin eCW1 n 500 MG omycin 2019 ed 500 mg ([facility] Oral Tablet 500 mg 12:00: [facility] Azithromyci 00 AM Medical n 500 mg EDT Practice PC) Azithromyci Azithr 08/03/ active 2 tab e CW1 n 500 MG omycin 2019 ([facility] Oral Tablet 500 mg 12:00: [facility] Azithromyci 00 AM Medical n 500 mg EDT Practice PC) Azithromyci Azithr 08/03/ suspend 2 tab eCW1 n 500 MG omycin 2019 ed ([facility] Oral Tablet 500 mg 12:00: [facility] Azithromyci 00 AM Medical n 500 mg EDT Practice PC) Azithromyci Azithr 08/03/ Tablet Orally 500 mg Orally complet 2 tab eCW1 n 500 MG omycin 2019 once ed ([facility] Oral Tablet 12:00: Arun s 00 Medical EDT Practice PC) Azithromyci Azithr 08/03/ suspend 2 tab eCW1 n 500 MG omycin 2019 ed ([facility] Oral Tablet 500 mg 12:00: [facility] Azithromyci 00 AM Medical n 500 mg EDT Practice PC) Azithromyci Azithr 08/03/ Tablet Orally 500 mg Orally complet 2 tab eCW1 n 500 MG omycin 2019 once ed ([facility] Oral Tablet 12:00: Arun s 00 Medical EDT Practice PC) Azithromyci Azithr 08/03/ suspend 2 tab eCW1 n 500 MG omycin 2019 ed ([facility] Oral Tablet 500 mg 12:00: [facility] Azithromyci 00 AM Medical n 500 mg EDT Practice PC) Azithromyci Azithr 08/03/ suspend Azithr omycin eCW1 n 500 MG omycin 2019 ed 500 mg ([facility] Oral Tablet 500 mg 12:00: [facility] Azithromyci 00 AM Medical n 500 mg EDT Practice PC) Azithromyci Azithr 08/03/ suspend Azithr omycin eCW1 n 500 MG omycin 2019 ed 500 mg ([facility] Oral Tablet 500 mg 12:00: [facility] Azithromyci 00 AM Medical n 500 mg EDT Practice PC) Azithromyci Azithr 08/03/ suspend 2 tab eCW1 n 500 MG omycin 2019 ed ([facility] Oral Tablet 500 mg 12:00: [facility] Azithromyci 00 AM Medical n 500 mg EDT Practice PC) Azithromyci Azithr 08/03/ Tablet Orally 500 mg Orally complet 2 tab eCW1 n 500 MG omycin 2019 once ed ([facility] Oral Tablet 12:00: Arun s 00 Medical EDT Practice PC) Azithromyci Azithr 08/03/ suspend 2 tab eCW1 n 500 MG omycin 2019 ed ([facility] Oral Tablet 500 mg 12:00: [facility] Azithromyci 00 AM Medical n 500 mg EDT Practice PC) Fluconazole Flucon .0 suspend Flucon azole eCW1 150 MG Oral azole 2019 {tabl ed 150 MG ([facility] Tablet 150 MG 12:00: et} Medical EDT Practice PC) Sulfamethox Bactri .0 suspend Bactri m DS eCW1 azole 800 m DS 2019 {tabl ed 800-160 MG (Sa int MG / 800-16 12:00: et} Mago Trimethopri 0 MG 00 AM Medical m 160 MG EDT Practice Oral Tablet PC) [Bactrim] Bactrim DS 800-160 MG Fluconazole Flucon .0 suspend Flucon azole eCW1 150 MG Oral azole 2019 {tabl ed 150 MG ([facility] Tablet 150 MG 12:00: et} Medical EDT Practice PC) Fluconazole Flucon 07/24/ suspend 1 tabl et eCW1 150 MG Oral azole 2019 ed ([facility] Tablet 150 MG 12:00: Medical EDT Practice PC) Sulfamethox Bactri .0 suspend Bactri m DS eCW1 azole 800 m DS 2019 {tabl ed 800-160 MG (Sa int MG / 800-16 12:00: et} Mago Trimethopri 0 MG 00 AM Medical m 160 MG EDT Practice Oral Tablet PC) [Bactrim] Bactrim DS 800-160 MG Fluconazole Flucon .0 suspend Flucon azole eCW1 150 MG Oral azole 2019 {tabl ed 150 MG ([facility] Tablet 150 MG 12:00: et} Medical EDT Practice PC) Fluconazole Flucon .0 suspend Flucon azole eCW1 150 MG Oral azole 2019 {tabl ed 150 MG ([facility] nt Tablet 150 MG 12:00: et} Medical EDT Practice PC) Sulfamethox Bactri 07/24/ suspend 1 tabl et eCW1 azole 800 m DS 2019 ed ([facility] MG / 800-16 12:00: Mago Trimethopri 0 MG 00 AM Medical m 160 MG EDT Practice Oral Tablet PC) [Bactrim] Bactrim DS 800-160 MG Sulfamethox Bactri 07/24/ Tablet Orally 800-160 MG complet 1 tablet eCW1 azole 800 m DS 2019 Orally every 12 ed ([facility] MG / 12:00: hours [facility]ago Trimethopri 00 AM Medical m 160 MG EDT Practice Oral Tablet PC) [Bactrim] Bactrim DS Fluconazole Flucon 07/24/ 1.0 suspend Flucon azole eCW1 150 MG Oral azole 2019 {tabl ed 150 MG ([facility] nt Tablet 150 MG 12:00: et} Mago 00 AM Medical EDT Practice PC) Fluconazole Flucon 07/24/ active 1 table t eCW1 150 MG Oral azole 2019 ([facility] Tablet 150 MG 12:00: Mago 00 AM Medical EDT Practice PC) Sulfamethox Bactri 07/24/ suspend 1 tabl et eCW1 azole 800 m DS 2019 ed ([facility] MG / 800-16 12:00: [facility]ago Trimethopri 0 MG 00 AM Medical m 160 MG EDT Practice Oral Tablet PC) [Bactrim] Bactrim DS 800-160 MG Fluconazole Flucon 07/24/ Tablet Orally 150 MG Orally complet 1 tablet eCW1 150 MG Oral azole 2019 once ed ([facility] Tablet 12:00: Mago 00 AM Medical EDT Practice PC) Sulfamethox Bactri 07/24/ 1.0 suspend Bactri m DS eCW1 azole 800 m DS 2019 {tabl ed 800-160 MG (Sa int MG / 800-16 12:00: et} Mago Trimethopri 0 MG 00 AM Medical m 160 MG EDT Practice Oral Tablet PC) [Bactrim] Bactrim DS 800-160 MG Sulfamethox Bactri 07/24/ 1.0 suspend Bactri m DS eCW1 azole 800 m DS 2019 {tabl ed 800-160 MG (Sa int MG / 800-16 12:00: et} Mago Trimethopri 0 MG 00 AM Medical m 160 MG EDT Practice Oral Tablet PC) [Bactrim] Bactrim DS 800-160 MG Fluconazole Flucon 07/24/ suspend 1 tabl et eCW1 150 MG Oral azole 2019 ed ([facility] Tablet 150 MG 12:00: Mago 00 AM Medical EDT Practice PC) Fluconazole Flucon 07/24/ Tablet Orally 150 MG Orally complet 1 tablet eCW1 150 MG Oral azole 2019 once ed ([facility] Tablet 12:00: Mago 00 AM Medical EDT Practice PC) Fluconazole Flucon 07/24/ suspend 1 tabl et eCW1 150 MG Oral azole 2019 ed ([facility] Tablet 150 MG 12:00: Mago 00 AM Medical EDT Practice PC) Fluconazole Flucon 07/24/ suspend 1 tabl et eCW1 150 MG Oral azole 2019 ed ([facility] Tablet 150 MG 12:00: Mago 00 AM Medical EDT Practice PC) Sulfamethox Bactri 07/24/ Tablet Orally 800-160 MG complet 1 tablet eCW1 azole 800 m DS 2019 Orally every 12 ed ([facility] MG / 12:00: hours Mago Trimethopri 00 AM Medical m 160 MG EDT Practice Oral Tablet PC) [Bactrim] Bactrim DS Fluconazole Flucon 07/24/ Tablet Orally 150 MG Orally complet 1 tablet eCW1 150 MG Oral azole 2019 once ed ([facility] Tablet 12:00: Mago 00 AM Medical EDT Practice PC) Fluconazole Flucon 07/24/ suspend 1 tabl et eCW1 150 MG Oral azole 2019 ed ([facility] Tablet 150 MG 12:00: Mago 00 AM Medical EDT Practice PC) Sulfamethox Bactri 07/24/ 1.0 suspend Bactri m DS eCW1 azole 800 m DS 2019 {tabl ed 800-160 MG (Sa int MG / 800-16 12:00: et} Mago Trimethopri 0 MG 00 AM Medical m 160 MG EDT Practice Oral Tablet PC) [Bactrim] Bactrim DS 800-160 MG Fluconazole Flucon 07/24/ 1.0 suspend Flucon azole eCW1 150 MG Oral azole 2019 {tabl ed 150 MG ([facility] nt Tablet 150 MG 12:00: et} Mago 00 AM Medical EDT Practice PC) Sulfamethox Bactri 07/24/ suspend 1 tabl et eCW1 azole 800 m DS 2019 ed ([facility] MG / 800-16 12:00: Mago Trimethopri 0 MG 00 AM Medical m 160 MG EDT Practice Oral Tablet PC) [Bactrim] Bactrim DS 800-160 MG Fluconazole Flucon 07/24/ Tablet Orally 150 MG Orally complet 1 tablet eCW1 150 MG Oral azole 2019 once ed ([facility] Tablet 12:00: Mago 00 AM Medical EDT Practice PC) Sulfamethox Bactri 07/24/ suspend 1 tabl et eCW1 azole 800 m DS 2019 ed ([facility] MG / 800-16 12:00: [facility]ago Trimethopri 0 MG 00 AM Medical m 160 MG EDT Practice Oral Tablet PC) [Bactrim] Bactrim DS 800-160 MG Sulfamethox Bactri // 1.0 suspend Bactri m DS eCW1 azole 800 m DS 2019 {tabl ed 800-160 MG (Sa int MG / 800-16 12:00: et} [facility]ago Trimethopri 0 MG 00 AM Medical m 160 MG EDT Practice Oral Tablet PC) [Bactrim] Bactrim DS 800-160 MG Sulfamethox Bactri 07/24/ suspend 1 tabl et eCW1 azole 800 m DS 2019 ed ([facility] MG / 800-16 12:00: [facility] Trimethopri 0 MG 00 AM Medical m 160 MG EDT Practice Oral Tablet PC) [Bactrim] Bactrim DS 800-160 MG Fluconazole Flucon 07/24/ suspend 1 tabl et eCW1 150 MG Oral azole 2019 ed ([facility] Tablet 150 MG 12:00: Mago 00 AM Medical EDT Practice PC) Sulfamethox Bactri 07/24/ suspend 1 tabl et eCW1 azole 800 m DS 2019 ed ([facility] MG / 800-16 12:00: [facility] Trimethopri 0 MG 00 AM Medical m 160 MG EDT Practice Oral Tablet PC) [Bactrim] Bactrim DS 800-160 MG Sulfamethox Bactri 07/24/ active 1 table t eCW1 azole 800 m DS 2019 ([facility] MG / 800-16 12:00: Mago Trimethopri 0 MG 00 AM Medical m 160 MG EDT Practice Oral Tablet PC) [Bactrim] Bactrim DS 800-160 MG Fluconazole Flucon 07/24/ Tablet Orally 150 MG Orally complet 1 tablet eCW1 150 MG Oral azole 2019 once ed ([facility] Tablet 12:00: Mago 00 AM Medical EDT Practice PC) Metronidazo Flagyl 04/24/ Tablet Orally 500 mg Orally complet 1 tablet eCW1 le 500 MG 2018 twice at day ed (S aint Oral Tablet 12:00: Arun españa [Flagyl] 00 AM Medical EST Practice PC) Metronidazo Flagyl 04/24/ suspend 1 tabl et eCW1 le 500 MG 500 mg 2018 ed ([facility] Oral Tablet 12:00: Arun españa [Flagyl] 00 AM Medical Flagyl 500 EST Practice mg PC) Metronidazo Flagyl 04/24/ suspend 1 tabl et eCW1 le 500 MG 500 mg 2018 ed ([facility] Oral Tablet 12:00: Arun españa [Flagyl] 00 AM Medical Flagyl 500 EST Practice mg PC) Fluconazole Difluc 1.0 suspend Difluc an 150 eCW1 150 MG Oral an 150 2018 {tabl ed MG (Ricardo t Tablet MG 12:00: et} Mago [Diflucan] 00 AM Medical Diflucan EST Practice 150 MG PC) Fluconazole Difluc 04/24/ suspend 1 tabl et eCW1 150 MG Oral an 150 2018 ed ([facility] Tablet MG 12:00: Mago [Diflucan] 00 AM Medical Diflucan EST Practice 150 MG PC) Fluconazole Difluc 04/24/ Tablet Orally 150 MG Orally complet 1 tablet eCW1 150 MG Oral an 2018 once,repeat in ed ([facility] Tablet 12:00: 3 days Mago [Diflucan] 00 AM Medical EST Practice PC) Fluconazole Difluc 04/24/ suspend 1 tabl et eCW1 150 MG Oral an 150 2018 ed ([facility] Tablet MG 12:00: Mago [Diflucan] 00 AM Medical Diflucan EST Practice 150 MG PC) Fluconazole Difluc 1.0 suspend Difluc an 150 eCW1 150 MG Oral an 150 2018 {tabl ed MG (Ricardo t Tablet MG 12:00: et} Mago [Diflucan] 00 AM Medical Diflucan EST Practice 150 MG PC) Metronidazo Flagyl 04/24/ Tablet Orally 500 mg Orally complet 1 tablet eCW1 le 500 MG 2018 twice at day ed (S aint Oral Tablet 12:00: Arun españa [Flagyl] 00 AM Medical EST Practice PC) Metronidazo Flagyl 04/24/ suspend 1 tabl et eCW1 le 500 MG 500 mg 2018 ed ([facility] Oral Tablet 12:00: Arun españa [Flagyl] 00 AM Medical Flagyl 500 EST Practice mg PC) Fluconazole Difluc 04/24/ suspend 1 tabl et eCW1 150 MG Oral an 150 2018 ed ([facility] Tablet MG 12:00: Mago [Diflucan] 00 AM Medical Diflucan EST Practice 150 MG PC) Fluconazole Difluc 04/24/ suspend 1 tabl et eCW1 150 MG Oral an 150 2018 ed ([facility] MG 12:00: Mago [Diflucan] 00 AM Medical Diflucan EST Practice 150 MG PC) Fluconazole Difluc 1.0 suspend Difluc an 150 eCW1 150 MG Oral an 150 2018 {tabl ed MG ([facility] t Tablet MG 12:00: et} Mago [Diflucan] 00 AM Medical Diflucan EST Practice 150 MG PC) Metronidazo Flagyl 04/24/ Tablet Orally 500 mg Orally complet 1 tablet eCW1 le 500 MG 2018 twice at day ed ([facility] Oral Tablet 12:00: Arun españa [Flagyl] 00 AM Medical EST Practice PC) Fluconazole Difluc 04/24/ Tablet Orally 150 MG Orally complet 1 tablet eCW1 150 MG Oral an 2018 once,repeat in ed ([facility] 12:00: 3 days Mago [Diflucan] 00 AM Medical EST Practice PC) Metronidazo Flagyl 04/24/ active 1 table t eCW1 le 500 MG 500 mg 2018 ([facility] Oral Tablet 12:00: Arun españa [Flagyl] 00 AM Medical Flagyl 500 EST Practice mg PC) Fluconazole Difluc 04/24/ Tablet Orally 150 MG Orally complet 1 tablet eCW1 150 MG Oral an 2018 once,repeat in ed ([facility] 12:00: 3 days Mago [Diflucan] 00 AM Medical EST Practice PC) Metronidazo Flagyl 04/24/ Tablet Orally 500 mg Orally complet 1 tablet eCW1 le 500 MG 2018 twice at day ed ([facility] aint Oral Tablet 12:00: Arun españa [Flagyl] 00 AM Medical EST Practice PC) Fluconazole Difluc 1.0 suspend Difluc an 150 eCW1 150 MG Oral an 150 2018 {tabl ed MG ([facility]ardo t Tablet MG 12:00: et} Mago [Diflucan] 00 AM Medical Diflucan EST Practice 150 MG PC) Metronidazo Flagyl 1.0 suspend Flagyl 500 eCW1 le 500 MG 500 mg 2018 {tabl ed mg ([facility] Oral Tablet 12:00: et} Arun españa [Flagyl] 00 AM Medical Flagyl 500 EST Practice mg PC) Metronidazo Flagyl 04/24/ suspend 1 tabl et eCW1 le 500 MG 500 mg 2018 ed ([facility] Tablet 12:00: Arun españa [Flagyl] 00 AM Medical Flagyl 500 EST Practice mg PC) Metronidazo Flagyl 04/24/ suspend 1 tabl et eCW1 le 500 MG 500 mg 2018 ed ([facility] Oral Tablet 12:00: Arun españa [Flagyl] 00 AM Medical Flagyl 500 EST Practice mg PC) Fluconazole Difluc .0 suspend Difluc an 150 eCW1 150 MG Oral an 150 2018 {tabl ed MG ([facility]ardo t Tablet MG 12:00: et} Mago [Diflucan] 00 AM Medical Diflucan EST Practice 150 MG PC) Fluconazole Difluc 04/24/ active 1 table t eCW1 150 MG Oral an 150 2018 ([facility] MG 12:00: Mago [Diflucan] 00 AM Medical Diflucan EST Practice 150 MG PC) Metronidazo Flagyl .0 suspend Flagyl 500 eCW1 le 500 MG 500 mg 2018 {tabl ed mg ([facility] Tablet 12:00: et} Arnu españa [Flagyl] 00 AM Medical Flagyl 500 EST Practice mg PC) Fluconazole Difluc 04/24/ Tablet Orally 150 MG Orally complet 1 tablet eCW1 150 MG Oral an 2018 once,repeat in ed ([facility] 12:00: 3 days Mago [Diflucan] 00 AM Medical EST Practice PC) Metronidazo Flagyl .0 suspend Flagyl 500 eCW1 le 500 MG 500 mg 2018 {tabl ed mg ([facility] Tablet 12:00: et} Arun españa [Flagyl] 00 AM Medical Flagyl 500 EST Practice mg PC) Fluconazole Difluc 04/24/ Tablet Orally 150 MG Orally complet 1 tablet eCW1 150 MG Oral an 2018 once,repeat in ed ([facility] 12:00: 3 days Mago [Diflucan] 00 AM Medical EST Practice PC) Fluconazole Difluc .0 suspend Difluc an 150 eCW1 150 MG Oral an 150 2018 {tabl ed MG ([facility] t Tablet MG 12:00: et} Mago [Diflucan] 00 AM Medical Diflucan EST Practice 150 MG PC) Metronidazo Flagyl 12/31/ 1.0 suspend Flagyl 500 eCW1 le 500 MG 500 mg 2018 {tabl ed mg ([facility] Tablet 12:00: et} Arun españa [Flagyl] 00 AM Medical Flagyl 500 EST Practice mg PC) Metronidazo Flagyl 04/24/ Tablet Orally 500 mg Orally complet 1 tablet eCW1 le 500 MG 2018 twice at day ed ([facility] aint Oral Tablet 12:00: Arun españa [Flagyl] 00 AM Medical EST Practice PC) Metronidazo Flagyl .0 suspend Flagyl 500 eCW1 le 500 MG 500 mg 2018 {tabl ed mg ([facility] Tablet 12:00: et} Arun españa [Flagyl] 00 AM Medical Flagyl 500 EST Practice mg PC) Metronidazo Flagyl 04/24/ Tablet Orally 500 mg Orally complet 1 tablet eCW1 le 500 MG 2018 twice at day ed ([facility] aint Oral Tablet 12:00: Arun españa [Flagyl] 00 AM Medical EST Practice PC) Fluconazole Difluc 04/24/ suspend 1 tabl et eCW1 150 MG Oral an 150 2018 ed ([facility] MG 12:00: Mago [Diflucan] 00 AM Medical Diflucan EST Practice 150 MG PC) Fluconazole Difluc 04/24/ suspend 1 tabl et eCW1 150 MG Oral an 150 2018 ed ([facility] MG 12:00: Mago [Diflucan] 00 AM Medical Diflucan EST Practice 150 MG PC) Metronidazo Flagyl .0 suspend Flagyl 500 eCW1 le 500 MG 500 mg 2018 {tabl ed mg ([facility] Tablet 12:00: et} Arun españa [Flagyl] 00 AM Medical Flagyl 500 EST Practice mg PC) Metronidazo Flagyl 04/24/ suspend 1 tabl et eCW1 le 500 MG 500 mg 2018 ed ([facility] Tablet 12:00: Arun españa [Flagyl] 00 AM Medical Flagyl 500 EST Practice mg PC) Fluconazole Difluc 04/24/ Tablet Orally 150 MG Orally complet 1 tablet eCW1 150 MG Oral an 2018 once,repeat in ed ([facility] 12:00: 3 days Mago [Diflucan] 00 AM Medical EST Practice PC) Fluconazole Difluc 04/24/ Tablet Orally 150 MG Orally complet 1 tablet eCW1 150 MG Oral an 2018 once,repeat in ed ([facility] 12:00: 3 days Mago [Diflucan] 00 AM Medical EST Practice PC) Metronidazo Flagyl 04/24/ Tablet Orally 500 mg Orally complet 1 tablet eCW1 le 500 MG 2018 twice at day ed ([facility] aint Oral Tablet 12:00: Arun s [Flagyl] 00 AM Medical EST Practice PC) Nicotine 7 Nicoti 04/12/ 1.0 suspend Nicotin e 7 eCW1 MG/24HR ne 7 2017 {patc ed MG/24HR ([facility] MG/24H 12:00: h_to_ Mago R 00 AM skin} Medical EST Practice PC) Nicotine 7 Nicoti 04/12/ suspend 1 patch to eCW1 MG/24HR ne 7 2017 ed skin ([facility] MG/24H 12:00: Mago R 00 AM Medical EST Practice PC) Nicotine 7 Nicoti 04/12/ 1.0 suspend Nicotin e 7 eCW1 MG/24HR ne 7 2017 {patc ed MG/24HR ([facility] MG/24H 12:00: h_to_ Mago R 00 AM skin} Medical EST Practice PC) Nicotine 7 Nicoti 04/12/ suspend 1 patch to eCW1 MG/24HR ne 7 2017 ed skin ([facility] MG/24H 12:00: Mago R 00 AM Medical EST Practice PC) Nicotine 04/12/ Patch 24 Transd 7 MG/24HR complet 1 patch to eCW1 2018 Hour ermal Transdermal ed skin ([facility] 12:00: Once a day Mago 00 AM Medical EST Practice PC) Nicotine 7 Nicoti 04/12/ 1.0 suspend Nicotin e 7 eCW1 MG/24HR ne 7 2017 {patc ed MG/24HR ([facility] MG/24H 12:00: h_to_ Mago R 00 AM skin} Medical EST Practice PC) Nicotine 04/12/ Patch 24 Transd 7 MG/24HR complet 1 patch to eCW1 2018 Hour ermal Transdermal ed skin ([facility] 12:00: Once a day Mago 00 AM Medical EST Practice PC) Nicotine 04/12/ Patch 24 Transd 7 MG/24HR complet 1 patch to eCW1 2018 Hour ermal Transdermal ed skin ([facility] 12:00: Once a day Mago 00 AM Medical EST Practice PC) Nicotine 7 Nicoti 04/12/ suspend 1 patch to eCW1 MG/24HR ne 7 2017 ed skin ([facility] MG/24H 12:00: Mago R 00 AM Medical EST Practice PC) Nicotine 7 Nicoti 04/12/ suspend 1 patch to eCW1 MG/24HR ne 7 2018 ed skin ([facility] MG/24H 12:00: Mago R 00 AM Medical EST Practice PC) Nicotine 04/12/ Patch 24 Transd 7 MG/24HR complet 1 patch to eCW1 2018 Hour ermal Transdermal ed skin ([facility] 12:00: Once a day Mago 00 AM Medical EST Practice PC) Nicotine 7 Nicoti 04/12/ 1.0 suspend Nicotin e 7 eCW1 MG/24HR ne 7 2017 {patc ed MG/24HR ([facility] MG/24H 12:00: h_to_ Mago R 00 AM skin} Medical EST Practice PC) Nicotine 7 Nicoti 04/12/ suspend 1 patch to eCW1 MG/24HR ne 7 2017 ed skin ([facility] MG/24H 12:00: Mago R 00 AM Medical EST Practice PC) Nicotine 7 Nicoti 04/12/ suspend 1 patch to eCW1 MG/24HR ne 7 2017 ed skin ([facility] MG/24H 12:00: Mago R 00 AM Medical EST Practice PC) Nicotine 7 Nicoti 1.0 suspend Nicotin e 7 eCW1 MG/24HR ne 7 2017 {patc ed MG/24HR ([facility] MG/24H 12:00: h_to_ Mago R 00 AM skin} Medical EST Practice PC) Nicotine 7 Nicoti 1.0 suspend Nicotin e 7 eCW1 MG/24HR ne 7 2017 {patc ed MG/24HR ([facility] MG/24H 12:00: h_to_ Mago R 00 AM skin} Medical EST Practice PC) Nicotine 7 Nicoti 04/12/ active 1 patch to eCW1 MG/24HR ne 7 2018 skin ([facility] MG/24H 12:00: Mago R 00 AM Medical EST Practice PC) Nicotine 7 Nicoti 04/12/ 1.0 suspend Nicotin e 7 eCW1 MG/24HR ne 7 2017 {patc ed MG/24HR ([facility] MG/24H 12:00: h_to_ Mago R 00 AM skin} Medical EST Practice PC) Nicotine 7 Nicoti 04/12/ 1.0 suspend Nicotin e 7 eCW1 MG/24HR ne 7 2017 {patc ed MG/24HR ([facility] MG/24H 12:00: h_to_ Mago R 00 AM skin} Medical EST Practice PC) Nicotine 7 Nicoti 04/12/ 1.0 suspend Nicotin e 7 eCW1 MG/24HR ne 7 2018 {patc ed MG/24HR ([facility] MG/24H 12:00: h_to_ Mago R 00 AM skin} Medical EST Practice PC) Nicotine 7 Nicoti 04/12/ 1.0 suspend Nicotin e 7 eCW1 MG/24HR ne 7 2017 {patc ed MG/24HR ([facility] MG/24H 12:00: h_to_ Mago R 00 AM skin} Medical EST Practice PC) Nicotine 7 Nicoti 04/12/ 1.0 suspend Nicotin e 7 eCW1 MG/24HR ne 7 2017 {patc ed MG/24HR ([facility] MG/24H 12:00: h_to_ Mago R 00 AM skin} Medical EST Practice PC) Nicotine 7 Nicoti 04/12/ suspend 1 patch to eCW1 MG/24HR ne 7 2018 ed skin ([facility] MG/24H 12:00: Mago R 00 AM Medical EST Practice PC) Nicotine 7 Nicoti 04/12/ suspend 1 patch to eCW1 MG/24HR ne 7 2017 ed skin ([facility] MG/24H 12:00: Mago R 00 AM Medical EST Practice PC) Nicotine 7 Nicoti 04/12/ suspend 1 patch to eCW1 MG/24HR ne 7 2017 ed skin ([facility] MG/24H 12:00: Mago R 00 AM Medical EST Practice PC) Nicotine 7 Nicoti 04/12/ 1.0 suspend Nicotin e 7 eCW1 MG/24HR ne 7 2018 {patc ed MG/24HR ([facility] MG/24H 12:00: h_to_ Mago R 00 AM skin} Medical EST Practice PC) Nicotine 04/12/ Patch 24 Transd 7 MG/24HR complet 1 patch to eCW1 2018 Hour ermal Transdermal ed skin ([facility] 12:00: Once a day Mago 00 AM Medical EST Practice PC) Nicotine 7 Nicoti 04/12/ active 1 patch to eCW1 MG/24HR ne 7 2018 skin ([facility] MG/24H 12:00: Mago R 00 AM Medical EST Practice PC) Nicotine 7 Nicoti 04/12/ suspend 1 patch to eCW1 MG/24HR ne 7 2018 ed skin ([facility] MG/24H 12:00: Mago R 00 AM Medical EST Practice PC) Nicotine 04/12/ Patch 24 Transd 7 MG/24HR complet 1 patch to eCW1 2018 Hour ermal Transdermal ed skin ([facility] 12:00: Once a day Mago 00 AM Medical EST Practice PC) Nicotine 7 Nicoti 04/12/ suspend 1 patch to eCW1 MG/24HR ne 7 2018 ed skin ([facility] MG/24H 12:00: Mago R 00 AM Medical EST Practice PC) Nicotine 7 Nicoti 04/12/ suspend 1 patch to eCW1 MG/24HR ne 7 2018 ed skin ([facility] MG/24H 12:00: Mago R 00 AM Medical EST Practice PC) Metronidazo Metron 04/11/ suspend 1 tabl et eCW1 le 500 MG idazol 2018 ed ([facility] Oral Tablet e 500 12:00: Will hs Metronidazo mg 00 AM Medical le 500 mg EST Practice PC) Metronidazo Metron 04/11/ suspend 1 tabl et eCW1 le 500 MG idazol 2018 ed ([facility] Tablet e 500 12:00: Will hs Metronidazo mg 00 AM Medical le 500 mg EST Practice PC) Metronidazo Metron 04/11/ Tablet Orally 500 mg Orally complet 1 tablet eCW1 le 500 MG idazol 2018 q12h ed ([facility] Tablet e 12:00: Arun s 00 AM Medical EST Practice PC) Metronidazo Metron 04/11/ suspend 1 tabl et eCW1 le 500 MG idazol 2018 ed ([facility] Tablet e 500 12:00: Will hs Metronidazo mg 00 AM Medical le 500 mg EST Practice PC) Metronidazo Metron 04/11/ Tablet Orally 500 mg Orally complet 1 tablet eCW1 le 500 MG idazol 2018 q12h ed ([facility] Tablet e 12:00: Arun s 00 AM Medical EST Practice PC) Metronidazo Metron 04/11/ 1.0 suspend Metron idazol eCW1 le 500 MG idazol 2018 {tabl ed e 500 mg (Sa int Oral Tablet e 500 12:00: et} Will hs Metronidazo mg 00 AM Medical le 500 mg EST Practice PC) Metronidazo Metron 04/11/ suspend 1 tabl et eCW1 le 500 MG idazol 2018 ed ([facility] Tablet e 500 12:00: Will hs Metronidazo mg 00 AM Medical le 500 mg EST Practice ) Metronidazo Metron 04/11/ Tablet Orally 500 mg Orally complet 1 tablet eCW1 le 500 MG idazol 2018 q12h ed ([facility] Oral Tablet e 12:00: Arun s AM Medical EST Practice ) Metronidazo Metron 04/11/ Tablet Orally 500 mg Orally complet 1 tablet eCW1 le 500 MG idazol 2018 q12h ed ([facility] Oral Tablet e 12:00: Arun s AM Medical EST Practice ) Metronidazo Metron 1.0 suspend Metron idazol eCW1 le 500 MG idazol 2018 {tabl ed e 500 mg (Sa int Oral Tablet e 500 12:00: et} Will hs Metronidazo mg 00 AM Medical le 500 mg EST Practice ) Metronidazo Metron 04/11/ Tablet Orally 500 mg Orally complet 1 tablet eCW1 le 500 MG idazol 2018 q12h ed ([facility] Tablet e 12:00: Arun s AM Medical EST Practice ) Metronidazo Metron 04/11/ active 1 table t eCW1 le 500 MG idazol 2018 ([facility] Tablet e 500 12:00: Will hs Metronidazo mg 00 AM Medical le 500 mg EST Practice ) Metronidazo Metron 04/11/ Tablet Orally 500 mg Orally complet 1 tablet eCW1 le 500 MG idazol 2018 q12h ed ([facility] Tablet e 12:00: Arun s 00 AM Medical EST Practice ) Metronidazo Metron 1.0 suspend Metron idazol eCW1 le 500 MG idazol 2018 {tabl ed e 500 mg (Sa int Oral Tablet e 500 12:00: et} Will hs Metronidazo mg 00 AM Medical le 500 mg EST Practice ) Metronidazo Metron 1.0 suspend Metron idazol eCW1 le 500 MG idazol 2018 {tabl ed e 500 mg (Sa int Oral Tablet e 500 12:00: et} Will hs Metronidazo mg 00 AM Medical le 500 mg EST Practice ) Metronidazo Metron 04/11/ suspend 1 tabl et eCW1 le 500 MG idazol 2018 ed ([facility] Tablet e 500 12:00: Will hs Metronidazo mg 00 AM Medical le 500 mg EST Practice PC) Metronidazo Metron 04/11/ Tablet Orally 500 mg Orally complet 1 tablet eCW1 le 500 MG idazol 2018 q12h ed ([facility] Tablet e 12:00: Arun s 00 AM Medical EST Practice PC) Metronidazo Metron 1.0 suspend Metron idazol eCW1 le 500 MG idazol 2018 {tabl ed e 500 mg (Sa int Oral Tablet e 500 12:00: et} Will hs Metronidazo mg 00 AM Medical le 500 mg EST Practice PC) Metronidazo Metron 04/11/ suspend 1 tabl et eCW1 le 500 MG idazol 2018 ed ([facility] Tablet e 500 12:00: Will hs Metronidazo mg 00 AM Medical le 500 mg EST Practice PC) Metronidazo Metron 1.0 suspend Metron idazol eCW1 le 500 MG idazol 2018 {tabl ed e 500 mg (Sa int Oral Tablet e 500 12:00: et} Will hs Metronidazo mg 00 AM Medical le 500 mg EST Practice PC) Metronidazo Metron 04/11/ Tablet Orally 500 mg Orally complet 1 tablet eCW1 le 500 MG idazol 2018 q12h ed ([facility] Tablet e 12:00: Arun s 00 AM Medical EST Practice PC) Sulfamethox Bactri 1.0 suspend Bactri m DS eCW1 azole 800 m DS 2018 {tabl ed 800-160 MG (Sa int MG / 800-16 12:00: et} Mago Trimethopri 0 MG 00 AM Medical m 160 MG EDT Practice Oral Tablet PC) [Bactrim] Bactrim DS 800-160 MG Sulfamethox Bactri 01/09/ Tablet Orally 800-160 MG complet 1 tablet eCW1 azole 800 m DS 2018 Orally Twice a ed ([facility] / 12:00: day Mago Trimethopri 00 AM Medical m 160 MG EDT Practice Oral Tablet PC) [Bactrim] Bactrim DS Sulfamethox Bactri 01/09/ suspend 1 tabl et eCW1 azole 800 m DS 2018 ed ([facility] MG / 800-16 12:00: Mago Trimethopri 0 MG 00 AM Medical m 160 MG EDT Practice Oral Tablet PC) [Bactrim] Bactrim DS 800-160 MG Sulfamethox Bactri 01/09/ Tablet Orally 800-160 MG complet 1 tablet eCW1 azole 800 m DS 2018 Orally Twice a ed ([facility] MG / 12:00: day Mago Trimethopri 00 AM Medical m 160 MG EDT Practice Oral Tablet PC) [Bactrim] Bactrim DS Sulfamethox Bactri 01/09/ suspend 1 tabl et eCW1 azole 800 m DS 2018 ed ([facility] MG / 800-16 12:00: Mago Trimethopri 0 MG 00 AM Medical m 160 MG EDT Practice Oral Tablet PC) [Bactrim] Bactrim DS 800-160 MG Sulfamethox Bactri 1.0 suspend Bactri m DS eCW1 azole 800 m DS 2018 {tabl ed 800-160 MG (Sa int MG / 800-16 12:00: et} Mago Trimethopri 0 MG 00 AM Medical m 160 MG EDT Practice Oral Tablet PC) [Bactrim] Bactrim DS 800-160 MG Sulfamethox Bactri 1.0 suspend Bactri m DS eCW1 azole 800 m DS 2018 {tabl ed 800-160 MG (Sa int MG / 800-16 12:00: et} Mago Trimethopri 0 MG 00 AM Medical m 160 MG EDT Practice Oral Tablet PC) [Bactrim] Bactrim DS 800-160 MG Sulfamethox Bactri 01/09/ Tablet Orally 800-160 MG complet 1 tablet eCW1 azole 800 m DS 2017 Orally Twice a ed ([facility] / 12:00: day Mago Trimethopri 00 AM Medical m 160 MG EDT Practice Oral Tablet PC) [Bactrim] Bactrim DS Sulfamethox Bactri 1.0 suspend Bactri m DS eCW1 azole 800 m DS 2018 {tabl ed 800-160 MG (Sa int MG / 800-16 12:00: et} Mago Trimethopri 0 MG 00 AM Medical m 160 MG EDT Practice Oral Tablet PC) [Bactrim] Bactrim DS 800-160 MG Sulfamethox Bactri 01/09/ suspend 1 tabl et eCW1 azole 800 m DS 2018 ed ([facility] / 800-16 12:00: Mago Trimethopri 0 MG 00 AM Medical m 160 MG EDT Practice Oral Tablet PC) [Bactrim] Bactrim DS 800-160 MG Sulfamethox Bactri 01/09/ 1.0 suspend Bactri m DS eCW1 azole 800 m DS 2018 {tabl ed 800-160 MG (Sa int MG / 800-16 12:00: et} Mago Trimethopri 0 MG 00 AM Medical m 160 MG EDT Practice Oral Tablet PC) [Bactrim] Bactrim DS 800-160 MG Sulfamethox Bactri 01/09/ Tablet Orally 800-160 MG complet 1 tablet eCW1 azole 800 m DS 2018 Orally Twice a ed ([facility] / 12:00: day Mago Trimethopri 00 AM Medical m 160 MG EDT Practice Oral Tablet PC) [Bactrim] Bactrim DS Sulfamethox Bactri 01/09/ active 1 table t eCW1 azole 800 m DS 2018 ([facility] / 800-16 12:00: Mago Trimethopri 0 MG 00 AM Medical m 160 MG EDT Practice Oral Tablet PC) [Bactrim] Bactrim DS 800-160 MG Sulfamethox Bactri 01/09/ Tablet Orally 800-160 MG complet 1 tablet eCW1 azole 800 m DS 2018 Orally Twice a ed ([facility] / 12:00: day Mago Trimethopri 00 AM Medical m 160 MG EDT Practice Oral Tablet PC) [Bactrim] Bactrim DS Sulfamethox Bactri 01/09/ suspend 1 tabl et eCW1 azole 800 m DS 2018 ed ([facility] / 800-16 12:00: Mago Trimethopri 0 MG 00 AM Medical m 160 MG EDT Practice Oral Tablet PC) [Bactrim] Bactrim DS 800-160 MG Sulfamethox Bactri 1.0 suspend Bactri m DS eCW1 azole 800 m DS 2018 {tabl ed 800-160 MG (Sa int MG / 800-16 12:00: et} Mago Trimethopri 0 MG 00 AM Medical m 160 MG EDT Practice Oral Tablet PC) [Bactrim] Bactrim DS 800-160 MG Sulfamethox Bactri 01/09/ suspend 1 tabl et eCW1 azole 800 m DS 2018 ed ([facility] / 800-16 12:00: Mago Trimethopri 0 MG 00 AM Medical m 160 MG EDT Practice Oral Tablet PC) [Bactrim] Bactrim DS 800-160 MG Sulfamethox Bactri 01/09/ suspend 1 tabl et eCW1 azole 800 m DS 2018 ed ([facility] / 800-16 12:00: Mago Trimethopri 0 MG 00 AM Medical m 160 MG EDT Practice Oral Tablet PC) [Bactrim] Bactrim DS 800-160 MG Mupirocin Mupiro 11/14/ suspend 1 eCW 1 0.02 MG/MG qian 2 2018 ed application ( [facility] Topical % 12:00: to affected [facility] Ointment 00 AM area Medical Mupirocin 2 EDT Practice % PC) Mupirocin Mupiro 11/14/ suspend 1 eCW 1 0.02 MG/MG qian 2 2018 ed application ( [facility] Top[facility] % 12:00: to affected [facility] Ointment 00 AM area Medical Mupirocin 2 EDT Practice % PC) Mupirocin Mupiro 11/14/ active 1 eCW1 0.02 MG/MG qian 2 2018 application ( [facility] Top[facility] % 12:00: to affected [facility] Ointment 00 AM area Medical Mupirocin 2 EDT Practice % PC) Betamethaso Diprol 11/14/ suspend 1 e CW1 ne 0.5 adeel AF 2018 ed application ([facility] MG/ML 0.05 % 12:00: to affected [facility] Augmented 00 AM area Medical Topical EDT Practice Cream PC) [Diprolene] Diprolene AF 0.05 % Mupirocin Mupiro 11/14/ Ointment Heel Attacher Wood 2 % Externally complet 1 eCW1 0.02 MG/MG qian 2018 ally twice at day ed applic ation ([facility] Topical 12:00: to affected [facility] Ointment 00 AM area Medical EDT Practice PC) Betamethaso Diprol 11/14/ suspend 1 e CW1 ne 0.5 adeel AF 2018 ed application ([facility] MG/ML 0.05 % 12:00: to affected [facility] Augmented 00 AM area Medical Topical EDT Practice Cream PC) [Diprolene] Diprolene AF 0.05 % Augmented Diprol 11/14/ Cream Heel Attacher Wood 0.05 % complet 1 eCW1 Betamethaso adeel AF 2018 ally Externally ed appli cation ([facility] ne 0.5 12:00: twice at day to affec serene Mago MG/ML 00 AM area Medical Topical EDT Practice Cream PC) [Diprolene] Diprolene AF Betamethaso Diprol 11/14/ 1.0 suspend Diprol adeel AF eCW1 ne 0.5 adeel2017 {appl ed 0.05 % ([facility] MG/ML 0.05 % 12:00: icati Mago Augmented 00 AM on_to Medical Topical EDT _affe Practice Cream cted_ PC) [Diprolene] area} Diprolene AF 0.05 % Mupirocin Mupiro 11/14/ Ointment Heel Attacher Wood 2 % Externally complet 1 eCW1 0.02 MG/MG qian 2017 ally twice at day ed applic ation ([facility] Topical 12:00: to affected [facility] Ointment 00 AM area Medical EDT Practice PC) Augmented Diprol 11/14/ Cream Heel Attacher Wood 0.05 % complet 1 eCW1 Betamethaso 2017 ally Externally ed appli cation ([facility] ne 0.5 12:00: twice at day to affec serene Mago MG/ML 00 AM area Medical Topical EDT Practice Cream PC) [Diprolene] Diprolene AF Augmented Diprol 11/14/ Cream Heel Attacher Wood 0.05 % complet 1 eCW1 Betamethaso 2017 ally Externally ed appli cation ([facility] ne 0.5 12:00: twice at day to affec serene Mago MG/ML 00 AM area Medical Topical EDT Practice Cream PC) [Diprolene] Diprolene AF Mupirocin Mupiro 11/14/ Ointment Heel Attacher Wood 2 % Externally complet 1 eCW1 0.02 MG/MG qian 2018 ally twice at day ed applic ation ([facility] Top[facility] 12:00: to affected [facility] Ointment 00 AM area Medical EDT Practice PC) Augmented Diprol 11/14/ Cream Heel Attacher Wood 0.05 % complet 1 eCW1 Betamethaso adeel 2017 ally Externally ed appli cation ([facility] ne 0.5 12:00: twice at day to affec serene Mago MG/ML 00 AM area Medical Topical EDT Practice Cream PC) [Diprolene] Diprolene AF Betamethaso Diprol 11/14/ suspend 1 e CW1 ne 0.5 adeel AF 2018 ed application ([facility] MG/ML 0.05 % 12:00: to affected [facility] Augmented 00 AM area Medical Topical EDT Practice Cream PC) [Diprolene] Diprolene AF 0.05 % Betamethaso Diprol 11/14/ 1.0 suspend Diprol adeel AF eCW1 ne 0.5 adeel AF 2018 {appl ed 0.05 % ([facility] MG/ML 0.05 % 12:00: icati Mago Augmented 00 AM on_to Medical Topical EDT _affe Practice Cream cted_ PC) [Diprolene] area} Diprolene AF 0.05 % Mupirocin Mupiro 11/14/ suspend 1 eCW 1 0.02 MG/MG qian 2 2018 ed application ( [facility] % 12:00: to affected [facility] Ointment 00 AM area Medical Mupirocin 2 EDT Practice % PC) Mupirocin Mupiro 11/14/ 1.0 suspend Mupiroci n 2 eCW1 0.02 MG/MG qian 2 2018 {appl ed % ([facility] % 12:00: icati Mago Ointment 00 AM on_to Medical Mupirocin 2 EDT _affe Practic e % cted_ PC) area} Mupirocin Mupiro 11/14/ suspend 1 eCW 1 0.02 MG/MG qian 2 2018 ed application ( [facility] % 12:00: to affected [facility] Ointment 00 AM area Medical Mupirocin 2 EDT Practice % PC) Mupirocin Mupiro 11/14/ Ointment Heel Attacher Wood 2 % Externally complet 1 eCW1 0.02 MG/MG qian 2018 ally twice at day ed applic ation ([facility] 12:00: to affected [facility] Ointment 00 AM area Medical EDT Practice PC) Mupirocin Mupiro 11/14/ Ointment Heel Attacher Wood 2 % Externally complet 1 eCW1 0.02 MG/MG qian 2018 ally twice at day ed applic ation ([facility] 12:00: to affected [facility] Ointment 00 AM area Medical EDT Practice PC) Betamethaso Diprol 11/14/ suspend 1 e CW1 ne 0.5 adeel 2017 ed application ([facility] MG/ML 0.05 % 12:00: to affected [facility] Augmented 00 AM area Medical Topical EDT Practice Cream PC) [Diprolene] Diprolene AF 0.05 % Betamethaso Diprol 11/14/ suspend 1 e CW1 ne 0.5 adeel 2017 ed application ([facility] MG/ML 0.05 % 12:00: to affected [facility] Augmented 00 AM area Medical Topical EDT Practice Cream PC) [Diprolene] Diprolene AF 0.05 % Mupirocin Mupiro 11/14/ suspend 1 eCW 1 0.02 MG/MG qian 2 2018 ed application ( [facility] % 12:00: to affected [facility] Ointment 00 AM area Medical Mupirocin 2 EDT Practice % PC) Augmented Diprol 11/14/ Cream Heel Attacher Wood 0.05 % complet 1 eCW1 Betamethaso adeel 2018 ally Externally ed appli cation ([facility] ne 0.5 12:00: twice at day to affec serene Mago MG/ML 00 AM area Medical Topical EDT Practice Cream PC) [Diprolene] Diprolene AF Betamethaso Diprol 11/14/ suspend 1 e CW1 ne 0.5 adeel 2017 ed application ([facility] MG/ML 0.05 % 12:00: to affected [facility] Augmented 00 AM area Medical Topical EDT Practice Cream PC) [Diprolene] Diprolene AF 0.05 % Mupirocin Mupiro 11/14/ Ointment Heel Attacher Wood 2 % Externally complet 1 eCW1 0.02 MG/MG qian 2018 ally twice at day ed applic ation ([facility] 12:00: to affected [facility] Ointment 00 AM area Medical EDT Practice PC) Betamethaso Diprol 11/14/ 1.0 suspend Diprol adeel AF eCW1 ne 0.5 adeel 2017 {appl ed 0.05 % ([facility] MG/ML 0.05 % 12:00: icati Mago Augmented 00 AM on_to Medical Topical EDT _affe Practice Cream cted_ PC) [Diprolene] area} Diprolene AF 0.05 % Betamethaso Diprol 11/14/ active 1 eC W1 ne 0.5 adeel AF 2018 application ([facility] MG/ML 0.05 % 12:00: to affected [facility] Augmented 00 AM area Medical Topical EDT Practice Cream PC) [Diprolene] Diprolene AF 0.05 % Mupirocin Mupiro 11/14/ suspend 1 eCW 1 0.02 MG/MG qian 2 2018 ed application ( [facility] % 12:00: to affected [facility] Ointment 00 AM area Medical Mupirocin 2 EDT Practice % PC) Mupirocin Mupiro 11/14/ Ointment Heel Attacher Wood 2 % Externally complet 1 eCW1 0.02 MG/MG qian 2018 ally twice at day ed applic ation ([facility] 12:00: to affected [facility] Ointment 00 AM area Medical EDT Practice PC) Mupirocin Mupiro 1.0 suspend Mupiroci n 2 eCW1 0.02 MG/MG qian 2 2018 {appl ed % ([facility] % 12:00: icati Mago Ointment 00 AM on_to Medical Mupirocin 2 EDT _affe Practic e % cted_ PC) area} Mupirocin Mupiro 1.0 suspend Mupiroci n 2 eCW1 0.02 MG/MG qian 2 2018 {appl ed % ([facility] % 12:00: icati Mago Ointment 00 AM on_to Medical Mupirocin 2 EDT _affe Practic e % cted_ PC) area} Betamethaso Diprol 1.0 suspend Diprol adeel AF eCW1 ne 0.5 adeel AF 2018 {appl ed 0.05 % ([facility] MG/ML 0.05 % 12:00: icati Mago Augmented 00 AM on_to Medical Topical EDT _affe Practice Cream cted_ PC) [Diprolene] area} Diprolene AF 0.05 % Mupirocin Mupiro 1.0 suspend Mupiroci n 2 eCW1 0.02 MG/MG qian 2 2018 {appl ed % ([facility] % 12:00: icati Mago Ointment 00 AM on_to Medical Mupirocin 2 EDT _affe Practic e % cted_ PC) area} Mupirocin Mupiro .0 suspend Mupiroci n 2 eCW1 0.02 MG/MG qian 2017 {appl ed % ([facility] % 12:00: icati Mago Ointment 00 AM on_to Medical Mupirocin 2 EDT _affe Practic e % cted_ PC) area} Mupirocin Mupiro .0 suspend Mupiroci n 2 eCW1 0.02 MG/MG qian 2 2017 {appl ed % ([facility] % 12:00: icati Mago Ointment 00 AM on_to Medical Mupirocin 2 EDT _affe Practic e % cted_ PC) area} Betamethaso Diprol .0 suspend Diprol adeel AF eCW1 ne 0.5 adeel2017 {appl ed 0.05 % ([facility] MG/ML 0.05 % 12:00: icati Mago Augmented 00 AM on_to Medical Topical EDT _affe Practice Cream cted_ PC) [Diprolene] area} Diprolene AF 0.05 % Augmented Diprol 11/14/ Cream Heel [employer] [place] 0.05 % complet 1 eCW1 Betamethaso adeel2017 ally Externally ed appli cation ([facility] ne 0.5 12:00: twice at day to affec serene Mago MG/ML 00 AM area Medical Topical EDT Practice Cream PC) [Diprolene] Diprolene AF Augmented Diprol 11/14/ Cream Heel [employer] [place] 0.05 % complet 1 eCW1 Betamethaso adeel 2017 ally Externally ed appli cation ([facility] ne 0.5 12:00: twice at day to affec serene Mago MG/ML 00 AM area Medical Topical EDT Practice Cream PC) [Diprolene] Diprolene AF Betamethaso Diprol .0 suspend Diprol adeel AF eCW1 ne 0.5 adeel 2017 {appl ed 0.05 % ([facility] MG/ML 0.05 % 12:00: icati Mago Augmented 00 AM on_to Medical Topical EDT _affe Practice Cream cted_ PC) [Diprolene] area} Diprolene AF 0.05 % Ibuprofen 10/06/ Tablet Orally 600 MG Orally complet 1 tablet eCW1 2017 Three times a ed with food o r ([facility] 12:00: day PRN milk as Mago 00 AM needed Medical EDT Practice PC) Ibuprofen Ibupro 10/06/ suspend Ibuprofe n eCW1 600 MG Oral fen 2018 ed 600 MG ([facility] Tablet 600 MG 12:00: Mago 00 AM Medical EDT Practice PC) Ibuprofen Ibupro 10/06/ suspend 1 tablet eCW1 600 MG Oral fen 2018 ed with food or ([facility] Tablet 600 MG 12:00: milk as Arun s 00 AM needed Medical EDT Practice PC) Ibuprofen Ibupro 10/06/ suspend Ibuprofe n eCW1 600 MG Oral fen 2018 ed 600 MG ([facility] Tablet 600 MG 12:00: Mago 00 AM Medical EDT Practice PC) Ibuprofen Ibupro 10/06/ suspend Ibuprofe n eCW1 600 MG Oral fen 2018 ed 600 MG ([facility] Tablet 600 MG 12:00: Mago 00 AM Medical EDT Practice PC) Ibuprofen 10/06/ Tablet Orally 600 MG Orally complet 1 tablet eCW1 2017 Three times a ed with food o r ([facility] 12:00: day PRN milk as Mago 00 AM needed Medical EDT Practice PC) Ibuprofen Ibupro 10/06/ suspend Ibuprofe n eCW1 600 MG Oral fen 2018 ed 600 MG ([facility] Tablet 600 MG 12:00: Mago 00 AM Medical EDT Practice PC) Ibuprofen 10/06/ Tablet Orally 600 MG Orally complet 1 tablet eCW1 2017 Three times a ed with food o r ([facility] 12:00: day PRN milk as Mago 00 AM needed Medical EDT Practice PC) Ibuprofen Ibupro 10/06/ suspend 1 tablet eCW1 600 MG Oral fen 2018 ed with food or ([facility] Tablet 600 MG 12:00: milk as Arun s 00 AM needed Medical EDT Practice PC) Ibuprofen 10/06/ Tablet Orally 600 MG Orally complet 1 tablet eCW1 2017 Three times a ed with food o r ([facility] 12:00: day PRN milk as Mago 00 AM needed Medical EDT Practice PC) Ibuprofen 10/06/ Tablet Orally 600 MG Orally complet 1 tablet eCW1 2017 Three times a ed with food o r ([facility] 12:00: day PRN milk as Mago 00 AM needed Medical EDT Practice PC) Ibuprofen Ibupro 10/06/ suspend 1 tablet eCW1 600 MG Oral fen 2018 ed with food or ([facility] Tablet 600 MG 12:00: milk as Arun s 00 AM needed Medical EDT Practice PC) Ibuprofen 10/06/ Tablet Orally 600 MG Orally complet 1 tablet eCW1 2018 Three times a ed with food o r ([facility] 12:00: day PRN milk as Mago 00 AM needed Medical EDT Practice PC) Ibuprofen Ibupro 10/06/ active 1 tablet eCW1 600 MG Oral fen 2018 with food or ([facility] Tablet 600 MG 12:00: milk as Arun s 00 AM needed Medical EDT Practice PC) Ibuprofen 10/06/ Tablet Orally 600 MG Orally complet 1 tablet eCW1 2018 Three times a ed with food o r ([facility] 12:00: day PRN milk as Mago 00 AM needed Medical EDT Practice PC) Ibuprofen Ibupro 10/06/ suspend 1 tablet eCW1 600 MG Oral fen 2018 ed with food or ([facility] Tablet 600 MG 12:00: milk as Arun s 00 AM needed Medical EDT Practice PC) Ibuprofen Ibupro 10/06/ suspend Ibuprofe n eCW1 600 MG Oral fen 2018 ed 600 MG ([facility] Tablet 600 MG 12:00: Mago 00 AM Medical EDT Practice PC) Ibuprofen Ibupro 10/06/ suspend 1 tablet eCW1 600 MG Oral fen 2018 ed with food or ([facility] Tablet 600 MG 12:00: milk as Arun s 00 AM needed Medical EDT Practice PC) Ibuprofen Ibupro 10/06/ suspend 1 tablet eCW1 600 MG Oral fen 2018 ed with food or ([facility] Tablet 600 MG 12:00: milk as Arun s 00 AM needed Medical EDT Practice PC) Ibuprofen Ibupro 10/06/ suspend Ibuprofe n eCW1 600 MG Oral fen 2018 ed 600 MG ([facility] Tablet 600 MG 12:00: Mago 00 AM Medical EDT Practice PC) Acyclovir Acyclo 1.0 suspend Acyclovi r 5 eCW1 0.05 MG/MG vir 5 2018 {appl ed % ([facility] % 12:00: icati Mago Ointment 00 AM on_to Medical Acyclovir 5 EDT _affe Practic e % cted_ PC) area} Acyclovir Acyclo 1.0 suspend Acyclovi r 5 eCW1 0.05 MG/MG vir 5 2018 {appl ed % ([facility] % 12:00: icati Mago Ointment 00 AM on_to Medical Acyclovir 5 EDT _affe Practic e % cted_ PC) area} Acyclovir Acyclo 07/12/ suspend 1 eCW 1 0.05 MG/MG vir 5 2017 ed application ( [facility] % 12:00: to affected [facility] Ointment 00 AM area Medical Acyclovir 5 EDT Practice % PC) Acyclovir Acyclo 07/12/ 1.0 suspend Acyclovi r 5 eCW1 0.05 MG/MG vir 5 2017 {appl ed % ([facility] % 12:00: icati Mago Ointment 00 AM on_to Medical Acyclovir 5 EDT _affe Practic e % cted_ PC) area} Acyclovir Acyclo 07/12/ suspend 1 eCW 1 0.05 MG/MG vir 5 2017 ed application ( [facility] % 12:00: to affected [facility] Ointment 00 AM area Medical Acyclovir 5 EDT Practice % PC) Acyclovir Acyclo 07/12/ suspend 1 eCW 1 0.05 MG/MG vir 5 2017 ed application ( [facility] % 12:00: to affected [facility] Ointment 00 AM area Medical Acyclovir 5 EDT Practice % PC) Acyclovir Acyclo 20/ 1.0 suspend Acyclovi r 5 eCW1 0.05 MG/MG vir 5 2017 {appl ed % ([facility] % 12:00: icati Mago Ointment 00 AM on_to Medical Acyclovir 5 EDT _affe Practic e % cted_ PC) area} Acyclovir Acyclo 07/12/ suspend 1 eCW 1 0.05 MG/MG vir 5 2018 ed application ( [facility] % 12:00: to affected [facility] Ointment 00 AM area Medical Acyclovir 5 EDT Practice % PC) Acyclovir Acyclo 07/12/ 1.0 suspend Acyclovi r 5 eCW1 0.05 MG/MG vir 5 2017 {appl ed % ([facility] % 12:00: icati Mago Ointment 00 AM on_to Medical Acyclovir 5 EDT _affe Practic e % cted_ PC) area} Acyclovir Acyclo 07/12/ suspend 1 eCW 1 0.05 MG/MG vir 5 2018 ed application ( [facility] % 12:00: to affected [facility] Ointment 00 AM area Medical Acyclovir 5 EDT Practice % PC) Acyclovir Acyclo 07/12/ suspend 1 eCW 1 0.05 MG/MG vir 5 2018 ed application ( [facility] % 12:00: to affected [facility] Ointment 00 AM area Medical Acyclovir 5 EDT Practice % PC) Acyclovir Acyclo 07/12/ suspend 1 eCW 1 0.05 MG/MG vir 5 2018 ed application ( [facility] % 12:00: to affected [facility] Ointment 00 AM area Medical Acyclovir 5 EDT Practice % PC) Acyclovir Acyclo 07/12/ 1.0 suspend Acyclovi r 5 eCW1 0.05 MG/MG vir 5 2017 {appl ed % ([facility] % 12:00: icati Mago Ointment 00 AM on_to Medical Acyclovir 5 EDT _affe Practic e % cted_ PC) area} Aspir-81 81 UNK 02/24/ suspend 1 tablet eCW1 MG 2017 ed ([facility] 12:00: Mago 00 AM Medical EDT Practice PC) Aspir-81 81 UNK 02/24/ suspend 1 tablet eCW1 MG 2017 ed ([facility] 12:00: Mago 00 AM Medical EDT Practice PC) Aspirin 81 Aspir- 02/24/ suspend 1 table t eCW1 MG Delayed 81 81 2017 ed ([facility] MG 12:00: Mago Oral Tablet 00 AM Medical Aspir-81 81 EDT Practice MG PC) Aspir-81 81 UNK 02/24/ suspend 1 tablet eCW1 MG 2017 ed ([facility] 12:00: Mago 00 AM Medical EDT Practice PC) Aspir-81 81 UNK 1.0 suspend Aspir-81 81 eCW1 MG 2017 {tabl ed MG ([facility] 12:00: et} Mago 00 AM Medical EDT Practice PC) Aspir-81 81 UNK 1.0 suspend Aspir-81 81 eCW1 MG 2017 {tabl ed MG ([facility] 12:00: et} Mago 00 AM Medical EDT Practice PC) Aspir-81 81 UNK 1.0 suspend Aspir-81 81 eCW1 MG 2017 {tabl ed MG ([facility] 12:00: et} Mago 00 AM Medical EDT Practice PC) Aspir-81 81 UNK 02/24/ suspend 1 tablet eCW1 MG 2017 ed ([facility] 12:00: Mago 00 AM Medical EDT Practice PC) Aspir-81 81 UNK 1.0 suspend Aspir-81 81 eCW1 MG 2017 {tabl ed MG ([facility] 12:00: et} Mago 00 AM Medical EDT Practice PC) Aspir-81 81 UNK 02/24/ suspend 1 tablet eCW1 MG 2017 ed ([facility] 12:00: Mago 00 AM Medical EDT Practice PC) Aspir-81 81 UNK 1.0 suspend Aspir-81 81 eCW1 MG 2017 {tabl ed MG ([facility] 12:00: et} Mago 00 AM Medical EDT Practice PC) Aspir-81 81 UNK 02/24/ suspend 1 tablet eCW1 MG 2017 ed ([facility] 12:00: Mago 00 AM Medical EDT Practice PC) Aspir-81 81 UNK 1.0 suspend Aspir-81 81 eCW1 MG 2017 {tabl ed MG ([facility] 12:00: et} [place] 00 AM Medical EDT Practice PC) Oxycodone Oxycod 11/02/ suspend Oxycodon e eCW1 Hydrochlori one 2016 ed HCl 15 MG (Sa int de 15 MG HCl 15 12:00: Mago Oral Tablet MG 00 AM Medical Oxycodone EDT Practice HCl 15 MG PC) Oxycodone Oxycod 11/02/ suspend 2 to 1 eCW1 Hydrochlori one 2016 ed tablet as (Sa int de 15 MG HCl 15 12:00: needed Will hs Oral Tablet MG 00 AM Medical Oxycodone EDT Practice HCl 15 MG PC) Oxycodone Oxycod 11/02/ suspend 2 to 1 eCW1 Hydrochlori one 2016 ed tablet as (Sa int de 15 MG HCl 15 12:00: needed Will hs Oral Tablet MG 00 AM Medical Oxycodone EDT Practice HCl 15 MG PC) Oxycodone Oxycod 11/02/ suspend 04/26 to 1 eCW Hydrochlori one 2016 ed tablet as (Sa int de 15 MG HCl 15 12:00: needed Will hs Oral Tablet MG 00 AM Medical Oxycodone EDT Practice HCl 15 MG PC) Oxycodone Oxycod suspend 04/26 to eCW Hydrochlori one 2016 ed tablet as (Sa int de 15 MG HCl 15 12:00: needed Will hs Oral Tablet MG 00 AM Medical Oxycodone EDT Practice HCl 15 MG PC) Oxycodone Oxycod suspend Oxycodon e eCW Hydrochlor one 2016 ed HCl 15 MG (Sa int de 15 MG HCl 15 12:00: Mago Oral Tablet MG 00 AM Medical Oxycodone EDT Practice HCl 15 MG PC) Oxycodone Oxycod suspend 04/26 to eC Hydrochlori one 2016 ed tablet as (Sa int de 15 MG HCl 15 12:00: needed Will hs Oral Tablet MG 00 AM Medical Oxycodone EDT Practice HCl 15 MG PC) Oxycodone Oxycod end Oxycodon e eCW Hydrochlor one 2016 ed HCl 15 MG (Sa int de 15 MG HCl 15 12:00: Mago Oral Tablet MG 00 AM Medical Oxycodone EDT Practice HCl 15 MG PC) Oxycodone Oxycod suspend 04/26 to eC Hydrochlori one 2016 ed tablet as (Sa int de 15 MG HCl 15 12:00: needed Will hs Oral Tablet MG 00 AM Medical Oxycodone EDT Practice HCl 15 MG PC) Oxycodone Oxycod suspend Oxycodon e eCW Hydrochlori one 2016 ed HCl 15 MG (Sa int de 15 MG HCl 15 12:00: Mago Oral Tablet MG 00 AM Medical Oxycodone EDT Practice HCl 15 MG PC) Oxycodone Oxycod suspend Oxycodon e eCW Hydrochlor one 2016 ed HCl 15 MG (Sa int de 15 MG HCl 15 12:00: Mago Oral Tablet MG 00 AM Medical Oxycodone EDT Practice HCl 15 MG PC) Oxycodone Oxycod 11/02/ suspend 1/2 to 1 eCW1 Hydrochlori one 2017 ed tablet as (Sa int de 15 MG HCl 15 12:00: needed Will hs Oral Tablet MG 00 AM Medical Oxycodone EDT Practice HCl 15 MG PC) Oxycodone Oxycod 11/02/ suspend Oxycodon e eCW1 Hydrochlori one 2017 ed HCl 15 MG (Sa int de 15 MG HCl 15 12:00: Mago Oral Tablet MG 00 AM Medical Oxycodone EDT Practice HCl 15 MG PC) Amoxicillin Amoxic 10/12/ suspend Amoxic illin eCW1 500 MG Oral illin 2017 ed 500 MG ([facility] Capsule 500 MG 12:00: Mago 00 AM Medical EDT Practice PC) Amoxicillin Amoxic 10/12/ suspend 4 e CW1 500 MG Oral illin 2016 ed ([facility] 500 MG 12:00: Mago 00 AM Medical EDT Practice PC) Amoxicillin Amoxic 10/12/ suspend Amoxic illin eCW1 500 MG Oral illin 2017 ed 500 MG ([facility] Capsule 500 MG 12:00: Mago 00 AM Medical EDT Practice PC) Amoxicillin Amoxic 10/12/ suspend 4 e CW1 500 MG Oral illin 2016 ed ([facility] 500 MG 12:00: Mago 00 AM Medical EDT Practice PC) Amoxicillin Amoxic 10/12/ suspend Amoxic illin eCW1 500 MG Oral illin 2016 ed 500 MG ([facility] Capsule 500 MG 12:00: Mago 00 AM Medical EDT Practice PC) Amoxicillin Amoxic 20/ suspend 4 e CW1 500 MG Oral illin 2017 ed ([facility] C[facility] 500 MG 12:00: Mago 00 AM Medical EDT Practice PC) Amoxicillin Amoxic 10/12/ suspend Amoxic illin eCW1 500 MG Oral illin 2016 ed 500 MG ([facility] Capsule 500 MG 12:00: Mago 00 AM Medical EDT Practice PC) Amoxicillin Amoxic 20/ suspend 4 e CW1 500 MG Oral illin 2016 ed ([facility] 500 MG 12:00: Mago 00 AM Medical EDT Practice PC) Amoxicillin Amoxic /20/ suspend 4 e CW1 500 MG Oral illin 2016 ed ([facility] C[facility] 500 MG 12:00: Mago 00 AM Medical EDT Practice PC) Amoxicillin Amoxic 20/ suspend 4 e CW1 500 MG Oral illin 2017 ed ([facility] C[facility]ule 500 MG 12:00: Mago 00 AM Medical EDT Practice PC) Amoxicillin Amoxic 10/12/ suspend Amoxic illin eCW1 500 MG Oral illin 2017 ed 500 MG ([facility] Capsule 500 MG 12:00: Mago 00 AM Medical EDT Practice PC) Amoxicillin Amoxic 10/12/ suspend Amoxic illin eCW1 500 MG Oral illin 2017 ed 500 MG ([facility] Capsule 500 MG 12:00: Mago 00 AM Medical EDT Practice PC) Amoxicillin Amoxic 10/12/ suspend 4 e CW1 500 MG Oral illin 2017 ed ([facility] C[facility] 500 MG 12:00: Mago 00 AM Medical EDT Practice PC) Amoxicillin .0 suspend Augmen tin eCW1 500 MG / tin 2016 {tabl ed 500-125 MG ([facility] Clavulanate 500-12 12:00: et} [facility] 125 MG Oral 5 MG 00 AM Medical Tablet EDT Practice [Augmentin] PC) Augmentin 500-[address] [facility] tin eCW1 500 MG / tin 2016 {tabl ed 500-125 MG ([facility] Clavulanate 500-12 12:00: et} [facility] 125 MG Oral 5 MG 00 AM Medical Tablet EDT Practice [Augmentin] PC) Augmentin 500-125 MG Amoxicillin .0 suspend Augmen tin eCW1 500 MG / tin 2017 {tabl ed 500-125 MG ([facility] Clavulanate 500-12 12:00: et} [facility] 125 MG Oral 5 MG 00 AM Medical Tablet EDT Practice [Augmentin] PC) Augmentin 500-125 MG Amoxicillin 08/30/ suspend 1 tabl et eCW1 500 MG / tin 2017 ed ([facility] Clavulanate 500-12 12:00: [facility] 125 MG Oral 5 MG 00 AM Medical Tablet EDT Practice [Augmentin] PC) Augmentin 500-125 MG Amoxicillin .0 suspend Augmen tin eCW1 500 MG / tin 2016 {tabl ed 500-125 MG ([facility] Clavulanate 500-12 12:00: et} [facility] 125 MG Oral 5 MG 00 AM Medical Tablet EDT Practice [Augmentin] PC) Augmentin 500-125 MG Amoxicillin 1.0 suspend Augmen tin eCW1 500 MG / tin 2017 {tabl ed 500-125 MG ([facility] Clavulanate 500-12 12:00: et} [facility] 125 MG Oral 5 MG 00 AM Medical Tablet EDT Practice [Augmentin] PC) Augmentin 500-125 MG Amoxicillin 08/30/ suspend 1 tabl et eCW1 500 MG / tin 2017 ed ([facility] Clavulanate 500-12 12:00: [facility] 125 MG Oral 5 MG 00 AM Medical Tablet EDT Practice [Augmentin] PC) Augmentin 500-125 MG Amoxicillin suspend 1 tabl et eCW1 500 MG / tin 2016 ed ([facility] Clavulanate 500-12 12:00: [facility] 125 MG Oral 5 MG 00 AM Medical Tablet EDT Practice [Augmentin] PC) Augmentin 500-125 MG Amoxicillin .0 suspend Novmen tin eCW1 500 MG / tin 2016 {tabl ed 500-125 MG ([facility] Clavulanate 500-12 12:00: et} [facility] 125 MG Oral 5 MG 00 AM Medical Tablet EDT Practice [Augmentin] PC) Augmentin 500-125 MG Amoxicillin suspend 1 tabl et eCW1 500 MG / tin 2016 ed ([facility] Clavulanate 500-12 12:00: [facility] 125 MG Oral 5 MG 00 AM Medical Tablet EDT Practice [Augmentin] PC) Augmentin 500-125 MG Amoxicillin suspend 1 tabl et eCW1 500 MG / tin 2016 ed ([facility] Clavulanate 500-12 12:00: [facility] 125 MG Oral 5 MG 00 AM Medical Tablet EDT Practice [Augmentin] PC) Augmentin 500-125 MG Amoxicillin suspend 1 tabl et eCW1 500 MG / tin 2016 ed ([facility] Clavulanate 500-12 12:00: [facility] 125 MG Oral 5 MG 00 AM Medical Tablet EDT Practice [Augmentin] PC) Augmentin 500-125 MG Amoxicillin suspend 1 tabl et eCW1 500 MG / tin 2016 ed ([facility] Clavulanate 500-12 12:00: [facility] 125 MG Oral 5 MG 00 AM Medical Tablet EDT Practice [Augmentin] PC) Augmentin 500-125 MG Prednisone Predni 06/25/ suspend 1 table t eCW1 20 MG Oral SONE 2017 ed ([facility] Tablet 20 MG 12:00: Mago PredniSONE 00 AM Medical 20 MG EST Practice PC) Prednisone Predni 06/25/ 1.0 suspend PredniS ONE eCW1 20 MG Oral SONE 2017 {tabl ed 20 MG ([facility] Tablet 20 MG 12:00: et} Mago PredniSONE 00 AM Medical 20 MG EST Practice PC) Prednisone Predni 06/25/ suspend 1 table t eCW1 20 MG Oral SONE 2016 ed ([facility] Tablet 20 MG 12:00: Mago PredniSONE 00 AM Medical 20 MG EST Practice PC) Prednisone Predni 1.0 suspend PredniS ONE eCW1 20 MG Oral SONE 2016 {tabl ed 20 MG ([facility] Tablet 20 MG 12:00: et} Mago PredniSONE 00 AM Medical 20 MG EST Practice PC) Prednisone Predni 06/25/ suspend 1 table t eCW1 20 MG Oral SONE 2016 ed ([facility] 20 MG 12:00: Mago PredniSONE 00 AM Medical 20 MG EST Practice PC) Prednisone Predni 1.0 suspend PredniS ONE eCW1 20 MG Oral SONE 2016 {tabl ed 20 MG ([facility] Tablet 20 MG 12:00: et} Mago PredniSONE 00 AM Medical 20 MG EST Practice PC) Prednisone Predni 1.0 suspend PredniS ONE eCW1 20 MG Oral SONE 2016 {tabl ed 20 MG ([facility] Tablet 20 MG 12:00: et} Mago PredniSONE 00 AM Medical 20 MG EST Practice PC) Prednisone Predni 06/25/ suspend 1 table t eCW1 20 MG Oral SONE 2016 ed ([facility] Tablet 20 MG 12:00: Mago PredniSONE 00 AM Medical 20 MG EST Practice PC) Prednisone Predni 1.0 suspend PredniS ONE eCW1 20 MG Oral SONE 2016 {tabl ed 20 MG ([facility] Tablet 20 MG 12:00: et} Mago PredniSONE 00 AM Medical 20 MG EST Practice PC) Prednisone Predni 06/25/ suspend 1 table t eCW1 20 MG Oral SONE 2016 ed ([facility] Tablet 20 MG 12:00: Mago PredniSONE 00 AM Medical 20 MG EST Practice PC) Prednisone Predni 06/25/ suspend 1 table t eCW1 20 MG Oral SONE 2016 ed ([facility] Tablet 20 MG 12:00: Mago PredniSONE 00 AM Medical 20 MG EST Practice PC) Prednisone Predni 06/25/ suspend 1 table t eCW1 20 MG Oral SONE 2016 ed ([facility] Tablet 20 MG 12:00: Mago PredniSONE 00 AM Medical 20 MG EST Practice PC) Prednisone Predni 06/25/ 1.0 suspend PredniS ONE eCW1 20 MG Oral SONE 2016 {tabl ed 20 MG ([facility] Tablet 20 MG 12:00: et} Mago PredniSONE 00 AM Medical 20 MG EST Practice PC) Dextrometho Promet 06/21/ 5.0 suspend [address]et [address] 3 2016 {ml_a ed -DM 6.25-15 (S aint MG/ML / -DM 12:00: s_nee MG/5ML Mago Promethazin 6.25-1 00 AM ded} Medic al e 5 EST Practice Hydrochlori MG/5ML PC) de 1.25 MG/ML Oral Solution Promethazin e-DM 6.25-15 MG/5ML Dextrometho Promet 06/21/ suspend 5 ml a s eCW1 [facility] 3 2016 ed needed ([facility] MG/ML / -DM 12:00: Mago Promethazin 6.25-1 00 AM Medic al e 5 EST Practice Hydrochlori MG/5ML PC) de 1.25 MG/ML Oral Solution Promethazin e-DM 6.25-15 MG/5ML Dextrometho Promet 06/21/ 5.0 suspend Promet [facility] eCW[address] [place] [address] 3 2016 {ml_a ed -DM 6.25-15 (S aint MG/ML / -DM 12:00: s_nee MG/5ML Mago Promethazin 6.25-1 00 AM ded} Medic al e 5 EST Practice Hydrochlori MG/5ML PC) de 1.25 MG/ML Oral Solution Promethazin e-DM 6.25-15 MG/5ML Azithromyci Azithr 06/21/ suspend 2 tabl ets eCW1 n 250 MG omycin 2016 ed on the first ( [facility] Oral Tablet 250 MG 12:00: day, then 1 Mago 00 AM tablet daily Medica l EST for 4 days Practice PC) Azithromyci Azithr 06/21/ suspend Azithr omycin eCW1 n 250 MG omycin 2017 ed 250 MG ([facility] Oral Tablet 250 MG 12:00: [facility] 00 AM Medical EST Practice PC) Azithromyci Azithr 06/21/ suspend Azithr omycin eCW1 n 250 MG omycin 2017 ed 250 MG ([facility] Oral Tablet 250 MG 12:00: [facility] 00 AM Medical EST Practice PC) Dextrometho Promet 06/21/ suspend 5 ml a s eCW1 rphan 3 2016 ed needed ([facility] MG/ML / -DM 12:00: Mago Promethazin 6.25-1 00 AM Medic al e 5 EST Practice Hydrochlori MG/5ML PC) de 1.25 MG/ML Oral Solution Promethazin e-DM 6.25-15 MG/5ML Azithromyci Azithr 06/21/ suspend Azithr omycin eCW1 n 250 MG omycin 2016 ed 250 MG ([facility] Oral Tablet 250 MG 12:00: [facility] 00 AM Medical EST Practice PC) Dextrometho Promet 06/21/ suspend 5 ml a s eCW1 han 3 2016 ed needed ([facility] MG/ML / -DM 12:00: Mago Promethazin 6.25-1 00 AM Medic al e 5 EST Practice Hydrochlori MG/5ML PC) de 1.25 MG/ML Oral Solution Promethazin e-DM 6.25-15 MG/5ML Dextrometho Promet 06/21/ suspend 5 ml a s eCW1 rphan 3 2016 ed needed ([facility] MG/ML / -DM 12:00: Mago Promethazin 6.25-1 00 AM Medic al e 5 EST Practice Hydrochlori MG/5ML PC) de 1.25 MG/ML Oral Solution Promethazin e-DM 6.25-15 MG/5ML Azithromyci Azithr 06/21/ suspend 2 tabl ets eCW1 n 250 MG omycin 2017 ed on the first ( [facility] Oral Tablet 250 MG 12:00: day, then 1 Mago 00 AM tablet daily Medica l EST for 4 days Practice PC) Azithromyci Azithr 06/21/ suspend 2 tabl ets eCW1 n 250 MG omycin 2016 ed on the first ( [facility] Oral Tablet 250 MG 12:00: day, then 1 Mago 00 AM tablet daily Medica l EST for 4 days Practice PC) Dextrometho Promet 06/21/ 5.[address] 3 2016 {ml_a ed -DM 6.25-15 (S aint MG/ML / -DM 12:00: s_nee MG/5ML Mago Promethazin 6.25-1 00 AM ded} Medic al e 5 EST Practice Hydrochlori MG/5ML PC) de 1.25 MG/ML Oral Solution Promethazin e-DM 6.25-15 MG/5ML [facility] 06/[facility] [address] 3 2016 {ml_a ed -DM 6.25-15 (S aint MG/ML / -DM 12:00: s_nee MG/5ML Mago Promethazin 6.25-1 00 AM ded} Medic al e 5 EST Practice Hydrochlori MG/5ML PC) de 1.25 MG/ML Oral Solution Promethazin e-DM 6.25-15 MG/5ML Azithromyci Azithr 06/21/ suspend 2 tabl ets eCW1 n 250 MG omycin 2016 ed on the first ( [facility] Oral Tablet 250 MG 12:00: day, then 1 Mago 00 AM tablet daily Medica l EST for 4 days Practice PC) Dextrometho Promet 06/21/ suspend 5 ml a s eCW1 [facility] 3 2016 ed needed ([facility] MG/ML / -DM 12:00: Mago Promethazin 6.25-1 00 AM Medic al e 5 EST Practice Hydrochlori MG/5ML PC) de 1.25 MG/ML Oral Solution Promethazin e-DM 6.25-15 MG/5ML Azithromyci Azithr 06/21/ suspend 2 tabl ets eCW1 n 250 MG omycin 2016 ed on the first ( [facility] Oral Tablet 250 MG 12:00: day, then 1 Mago 00 AM tablet daily Medica l EST for 4 days Practice PC) Dextrometho Promet 06/21/ 5.[address] [facility] [facility] {ml_a ed -DM 6.25-15 (S aint MG/ML / -DM 12:00: s_nee MG/5ML Mago Promethazin 6.25-1 00 AM ded} Medic al e 5 EST Practice Hydrochlori MG/5ML PC) de 1.25 MG/ML Oral Solution Promethazin e-DM 6.25-15 MG/5ML Azithromyci Azithr 06/21/ suspend 2 tabl ets eCW1 n 250 MG omycin 2016 ed on the first ( [facility] Oral Tablet 250 MG 12:00: day, then 1 Mago 00 AM tablet daily Medica l EST for 4 days Practice PC) Azithromyci Azithr 06/21/ suspend Azithr omycin eCW1 n 250 MG omycin 2016 ed 250 MG ([facility] Oral Tablet 250 MG 12:00: [facility] 00 AM Medical EST Practice PC) Azithromyci Azithr 06/21/ suspend Azithr omycin eCW1 n 250 MG omycin 2016 ed 250 MG ([facility] Oral Tablet 250 MG 12:00: [facility] 00 AM Medical EST Practice PC) Dextrometho Promet 06/21/ 5.0 suspend Promet ilda eCW1 [facility] 3 2016 {ml_a ed -DM 6.25-15 (S aint MG/ML / -DM 12:00: s_nee MG/5ML Mago Promethazin 6.25-1 00 AM ded} Medic al e 5 EST Practice Hydrochlori MG/5ML PC) de 1.25 MG/ML Oral Solution Promethazin e-DM 6.25-15 MG/5ML Azithromyci Azithr 06/21/ suspend 2 tabl ets eCW1 n 250 MG omycin 2016 ed on the first ( [facility] Oral Tablet 250 MG 12:00: day, then 1 Mago 00 AM tablet daily Medica l EST for 4 days Practice PC) Dextrometho Promet 06/21/ suspend 5 ml a s eCW1 [facility] 3 2016 ed needed ([facility] MG/ML / -DM 12:00: Mago Promethazin 6.25-1 00 AM Medic al e 5 EST Practice Hydrochlori MG/5ML PC) de 1.25 MG/ML Oral Solution Promethazin e-DM 6.25-15 MG/5ML Azithromyci Azithr 06/21/ suspend Azithr omycin eCW1 n 250 MG omycin 2017 ed 250 MG ([facility] Oral Tablet 250 MG 12:00: Erickson phs 00 AM Medical EST Practice PC) Dextrometho Promet 06/21/ suspend 5 ml a s eCW1 rphan 3 hazine 2017 ed needed ([facility] MG/ML / -DM 12:00: [facility] Promethazin 6.25-1 00 AM Medic al e 5 EST Practice Hydrochlori MG/5ML PC) de 1.25 MG/ML Oral Solution Promethazin e-DM 6.25-15 MG/5ML valacyclovi Valtre 12/02/ suspend 2 Tabl ets eCW1 r 1000 MG x 1 GM 2016 ed ([facility] Oral Tablet 12:00: Arun s [Valtrex] 00 AM Medical Valtrex 1 EDT Practice [facility]) valacyclovi Valtre 2.0 suspend Valtre x 1 GM eCW1 r 1000 MG x 1 GM 2016 {tabl ed ([facility] Oral Tablet 12:00: ets} Arun s [Valtrex] 00 AM Medical Valtrex 1 EDT Practice [facility]) valacyclovi Valtre 12/02/ suspend 2 Tabl ets eCW1 r 1000 MG x 1 GM 2016 ed ([facility] Oral Tablet 12:00: Arun s [Valtrex] 00 AM Medical Valtrex 1 EDT Practice [facility]) valacyclovi Valtre 12/02/ 2.0 suspend Valtre x 1 GM eCW1 r 1000 MG x 1 GM 2016 {tabl ed ([facility] Oral Tablet 12:00: ets} Arun s [Valtrex] 00 AM Medical Valtrex 1 EDT Practice [facility]) valacyclovi Valtre 12/02/ suspend 2 Tabl ets eCW1 r 1000 MG x 1 GM 2016 ed ([facility] Oral Tablet 12:00: Arun s [Valtrex] 00 AM Medical Valtrex 1 EDT Practice [facility]) valacyclovi Valtre 12/02/ suspend 2 Tabl ets eCW1 r 1000 MG x 1 GM 2016 ed ([facility] Oral Tablet 12:00: Arun s [Valtrex] 00 AM Medical Valtrex 1 EDT Practice [facility]) valacyclovi Valtre 2.0 suspend Valtre x 1 GM eCW1 r 1000 MG x 1 GM 2016 {tabl ed ([facility] Oral Tablet 12:00: ets} Arun s [Valtrex] 00 AM Medical Valtrex 1 EDT Practice [facility]) valacyclovi Valtre 12/02/ suspend 2 Tabl ets eCW1 r 1000 MG x 1 GM 2016 ed ([facility] Oral Tablet 12:00: Arun s [Valtrex] 00 AM Medical Valtrex 1 EDT Practice [facility]) valacyclovi Valtre 2.0 suspend Valtre x 1 GM eCW1 r 1000 MG x 1 GM 2016 {tabl ed ([facility] Oral Tablet 12:00: ets} Arun s [Valtrex] 00 AM Medical Valtrex 1 EDT Practice [facility]) valacyclovi Valtre 2.0 suspend Valtre x 1 GM eCW1 r 1000 MG x 1 GM 2016 {tabl ed ([facility] Oral Tablet 12:00: ets} Arun s [Valtrex] 00 AM Medical Valtrex 1 EDT Practice [facility]) valacyclovi Valtre 12/02/ suspend 2 Tabl ets eCW1 r 1000 MG x 1 GM 2016 ed ([facility] Oral Tablet 12:00: Arun s [Valtrex] 00 AM Medical Valtrex 1 EDT Practice [facility]) valacyclovi Valtre 2.0 suspend Valtre x 1 GM eCW1 r 1000 MG x 1 GM 2016 {tabl ed ([facility] Oral Tablet 12:00: ets} Arun s [Valtrex] 00 AM Medical Valtrex 1 EDT Practice [facility]) valacyclovi Valtre 12/02/ suspend 2 Tabl ets eCW1 r 1000 MG x 1 GM 2016 ed ([facility] Oral Tablet 12:00: Arun s [Valtrex] 00 AM Medical Valtrex 1 EDT Practice [facility]) Permethrin Permet 10/28/ suspend Permeth rin 5 eCW1 50 MG/ML hrin 5 2015 ed % ([facility] Topical % 12:00: [facility] Cream 00 AM Medical Permethrin EDT Practice 5 % PC) Permethrin Permet 10/28/ suspend as dire cted eCW1 50 MG/ML hrin 5 2016 ed ([facility] Topical % 12:00: [facility] Cream 00 AM Medical Permethrin EDT Practice 5 % PC) Permethrin Permet 10/28/ suspend Permeth rin 5 eCW1 50 MG/ML hrin 5 2016 ed % ([facility] Topical % 12:00: [facility] Cream 00 AM Medical Permethrin EDT Practice 5 % PC) Permethrin Permet 10/28/ suspend as dire cted eCW1 50 MG/ML hrin 5 2015 ed ([facility] Topical % 12:00: [facility] Cream 00 AM Medical Permethrin EDT Practice 5 % PC) Permethrin Permet 10/28/ suspend as dire cted eCW1 50 MG/ML hrin 5 2015 ed ([facility] Topical % 12:00: [place] Cream 00 AM Medical Permethrin EDT Practice 5 % PC) Permethrin Permet 10/28/ suspend Permeth rin 5 eCW1 50 MG/ML hrin 5 2015 ed % ([facility] Topical % 12:00: [place] Cream 00 AM Medical Permethrin EDT Practice 5 % PC) Permethrin Permet 10/28/ suspend Permeth rin 5 eCW1 50 MG/ML hrin 5 2015 ed % ([facility] Topical % 12:00: [facility] Cream 00 AM Medical Permethrin EDT Practice 5 % PC) Permethrin Permet 10/28/ suspend Permeth rin 5 eCW1 50 MG/ML hrin 5 2015 ed % ([facility] Topical % 12:00: [place] Cream 00 AM Medical Permethrin EDT Practice 5 % PC) Permethrin Permet 10/28/ suspend as dire cted eCW1 50 MG/ML hrin 5 2015 ed ([facility] Topical % 12:00: [place] Cream 00 AM Medical Permethrin EDT Practice 5 % PC) Permethrin Permet 10/28/ suspend as dire cted eCW1 50 MG/ML hrin 5 2015 ed ([facility] Topical % 12:00: [facility] Cream 00 AM Medical Permethrin EDT Practice 5 % PC) Permethrin Permet 10/28/ suspend as dire cted eCW1 50 MG/ML hrin 5 2015 ed ([facility] Topical % 12:00: [place] Cream 00 AM Medical Permethrin EDT Practice 5 % PC) Permethrin Permet 10/28/ suspend Permeth rin 5 eCW1 50 MG/ML hrin 5 2016 ed % ([facility] Topical % 12:00: [place] Cream 00 AM Medical Permethrin EDT Practice 5 % PC) Permethrin Permet 10/28/ suspend as dire cted eCW1 50 MG/ML hrin 5 2015 ed ([facility] Topical % 12:00: [facility] Cream 00 AM Medical Permethrin EDT Practice 5 % PC) Alprazolam Xanax Tablet Orally 0.25 MG Orally complet 1 tablet eCW1 0.25 MG Twice a day prn ed ( [facility] Oral Tablet [facility] [Xanax] Medical Practice PC) ferrous Ferrou 1.0 suspend Ferrous eCW1 sulfate 325 s {tabl ed Sulfate 325 ([facility] MG Oral Sulfat et} (65 Fe) MG Erickson phs Tablet e 325 Medical Ferrous (65 Practice Sulfate 325 Fe) MG PC) (65 Fe) MG Docusate Colace 1.0 suspend Colace 100 eCW1 Sodium 100 100 MG {caps ed MG ([facility] MG Oral ule_a [facility] Capsule s_nee Medical [Colace] ded} Practice Colace 100 PC) MG Docusate Colace suspend 1 capsule a s eCW1 Sodium 100 100 MG ed needed (Ricardo t MG Oral [facility] Capsule Medical [Colace] Practice Colace 100 PC) MG pantoprazol Proton suspend 1 tablet eCW1 e 40 MG ix 40 ed ([facility] Delayed MG [facility] Release Medical Oral Tablet Practice [Protonix] PC) Protonix 40 MG Alprazolam Xanax 1.0 suspend Xanax 0.25 eCW1 0.25 MG 0.25 {tabl ed MG ([facility] Oral Tablet MG et} [facility] [Xanax] Medical Xanax 0.25 Practice MG PC) Alprazolam Xanax 1.0 suspend Xanax 0.25 eCW1 0.25 MG 0.25 {tabl ed MG ([facility] Oral Tablet MG et} [facility] [Xanax] Medical Xanax 0.25 Practice MG PC) Aspirin EC Aspiri suspend 1 tablet eCW1 325 MG n EC ed ([facility] 325 MG [facility] Practice PC) Aspirin EC Aspiri 1.0 suspend Aspirin E C eCW1 325 MG n EC {tabl ed 325 MG ([facility] 325 MG et} [facility] PC) ferrous Ferrou suspend 1 tablet eCW 1 sulfate 325 s ed ([facility] MG Oral Sulfat [facility] Tablet e 325 Medical Ferrous (65 Practice Sulfate 325 Fe) MG PC) (65 Fe) MG Alprazolam Xanax 1.0 suspend Xanax 0.25 eCW1 0.25 MG 0.25 {tabl ed MG ([facility] Oral Tablet MG et} [facility] [Xanax] Medical Xanax 0.25 Practice MG PC) pantoprazol Proton suspend 1 tablet eCW1 e 40 MG ix 40 ed ([facility] Delayed MG [facility] Release Medical Oral Tablet Practice [Protonix] PC) Protonix 40 MG ferrous Ferrou suspend 1 tablet eCW 1 sulfate 325 s ed ([facility] MG Oral Sulfat [facility] Tablet e 325 Medical Ferrous (65 Practice Sulfate 325 Fe) MG PC) (65 Fe) MG Docusate Colace suspend 1 capsule a s eCW1 Sodium 100 100 MG ed needed (Ricardo t MG Oral [facility] Capsule Medical [Colace] Practice Colace 100 PC) MG Docusate Colace suspend 1 capsule a s eCW1 Sodium 100 100 MG ed needed (Ricardo t MG Oral [facility] Capsule Medical [Colace] Practice Colace 100 PC) MG Alprazolam Xanax suspend 1 tablet e CW1 0.25 MG 0.25 ed ([facility] Oral Tablet MG [facility] [Xanax] Medical Xanax 0.25 Practice MG PC) Unknown complet eCW1 Medications ed ([facility]) Unknown complet eCW1 Medications ed ([facility]) Unknown complet eCW1 Medications ed ([facility]) Alprazolam Xanax active 1 tablet eC W1 0.25 MG 0.25 ([facility] Oral Tablet MG [facility] [Xanax] Medical Xanax 0.25 Practice MG PC) Aspirin EC Aspiri 1.0 suspend Aspirin E C eCW1 325 MG n EC {tabl ed 325 MG ([facility] 325 MG et} [facility] PC) Docusate Colace 1.0 suspend Colace 100 eCW1 Sodium 100 100 MG {caps ed MG ([facility] MG Oral ule_a [facility] Capsule s_nee Medical [Colace] ded} Practice Colace 100 PC) MG pantoprazol Proton 1.0 suspend Protonix 40 eCW1 e 40 MG ix 40 {tabl ed MG ([facility] Delayed MG et} [facility] Release Medical Oral Tablet Practice [Protonix] PC) Protonix 40 MG Aspirin EC Aspiri 1.0 suspend Aspirin E C eCW1 325 MG n EC {tabl ed 325 MG ([facility] 325 MG et} [facility] PC) Aspirin EC Aspiri suspend 1 tablet eCW1 325 MG n EC ed ([facility] 325 MG [facility] Practice PC) Docusate Colace 1.0 suspend Colace 100 eCW1 Sodium 100 100 MG {caps ed MG ([facility] MG Oral ule_a [facility] Capsule s_nee Medical [Colace] ded} Practice Colace 100 PC) MG pantoprazol Proton 1.0 suspend Protonix 40 eCW1 e 40 MG ix 40 {tabl ed MG ([facility] Delayed MG et} [facility] Release Medical Oral Tablet Practice [Protonix] PC) Protonix 40 MG Alprazolam Xanax suspend 1 tablet e CW1 0.25 MG 0.25 ed ([facility] Oral Tablet MG [facility] [Xanax] Medical Xanax 0.25 Practice MG PC) Aspirin 325 Aspiri 1.0 suspend Aspirin EC eCW1 MG Delayed n EC {tabl ed 325 MG ([facility] Release 325 MG et} [facility] Oral Tablet Medical Aspirin EC Practice 325 MG PC) pantoprazol Proton 1.0 suspend Protonix 40 eCW1 e 40 MG ix 40 {tabl ed MG ([facility] Delayed MG et} [facility] Release Medical Oral Tablet Practice [Protonix] PC) Protonix 40 MG pantoprazol Proton suspend 1 tablet eCW1 e 40 MG ix 40 ed ([facility] Delayed MG [facility] Release Medical Oral Tablet Practice [Protonix] PC) Protonix 40 MG ferrous Ferrou 1.0 suspend Ferrous eCW1 sulfate 325 s {tabl ed Sulfate 325 ([facility] MG Oral Sulfat et} (65 Fe) MG [facility] phs Tablet e 325 Medical Ferrous (65 Practice Sulfate 325 Fe) MG PC) (65 Fe) MG Aspirin EC Aspiri suspend 1 tablet eCW1 325 MG n EC ed ([facility] 325 MG [facility] PC) ferrous Ferrou 1.0 suspend Ferrous eCW1 sulfate 325 s {tabl ed Sulfate 325 ([facility] MG Oral Sulfat et} (65 Fe) MG [place] phs Tablet e 325 Medical Ferrous (65 Practice Sulfate 325 Fe) MG PC) (65 Fe) MG ferrous Ferrou suspend 1 tablet eCW 1 sulfate 325 s ed ([facility] MG Oral Sulfat [facility] Tablet e 325 Medical Ferrous (65 Practice Sulfate 325 Fe) MG PC) (65 Fe) MG pantoprazol Proton suspend 1 tablet eCW1 e 40 MG ix 40 ed ([facility] Delayed MG [facility] Release Medical Oral Tablet Practice [Protonix] PC) Protonix 40 MG pantoprazol Proton 1.0 suspend Protonix 40 eCW1 e 40 MG ix 40 {tabl ed MG ([facility] Delayed MG et} [facility] Release Medical Oral Tablet Practice [Protonix] PC) Protonix 40 MG Alprazolam Xanax suspend 1 tablet e CW1 0.25 MG 0.25 ed ([facility] Oral Tablet MG [facility] [Xanax] Medical Xanax 0.25 Practice MG PC) Aspirin EC Aspiri suspend 1 tablet eCW1 325 MG n EC ed ([facility] 325 MG [facility] PC) Alprazolam Xanax 1.0 suspend Xanax 0.25 eCW1 0.25 MG 0.25 {tabl ed MG ([facility] Oral Tablet MG et} [facility] [Xanax] Medical Xanax 0.25 Practice MG PC) ferrous Ferrou 1.0 suspend Ferrous eCW1 sulfate 325 s {tabl ed Sulfate 325 ([facility] MG Oral Sulfat et} (65 Fe) MG [place] phs Tablet e 325 Medical Ferrous (65 Practice Sulfate 325 Fe) MG PC) (65 Fe) MG Aspirin 325 Aspiri 1.0 suspend Aspirin EC eCW1 MG Delayed n EC {tabl ed 325 MG ([facility] Release 325 MG et} [facility] Oral Tablet Medical Aspirin EC Practice 325 MG PC) Docusate Colace suspend 1 capsule a s eCW1 Sodium 100 100 MG ed needed (Ricardo t MG Oral [facility] Capsule Medical [Colace] Practice Colace 100 PC) MG Docusate Colace 1.0 suspend Colace 100 eCW1 Sodium 100 100 MG {caps ed MG ([facility] MG Oral ule_a [facility] Capsule s_nee Medical [Colace] ded} Practice Colace 100 PC) MG Aspirin EC Aspiri suspend 1 tablet eCW1 325 MG n EC ed ([facility] 325 MG [facility] PC) Alprazolam Xanax 1.0 suspend Xanax 0.25 eCW1 0.25 MG 0.25 {tabl ed MG ([facility] Oral Tablet MG et} [facility] [Xanax] Medical Xanax 0.25 Practice MG PC) Aspirin EC Aspiri 1.0 suspend Aspirin E C eCW1 325 MG n EC {tabl ed 325 MG ([facility] 325 MG et} [facility] PC) ferrous Ferrou suspend 1 tablet eCW 1 sulfate 325 s ed ([facility] MG Oral Sulfat [facility] Tablet e 325 Medical Ferrous (65 Practice Sulfate 325 Fe) MG PC) (65 Fe) MG Docusate Colace 1.0 suspend Colace 100 eCW1 Sodium 100 100 MG {caps ed MG ([facility] MG Oral ule_a [facility] Capsule s_nee Medical [Colace] ded} Practice Colace 100 PC) MG Alprazolam Xanax suspend 1 tablet e CW1 0.25 MG 0.25 ed ([facility] Oral Tablet MG [facility] [Xanax] Medical Xanax 0.25 Practice MG PC) Docusate Colace 1.0 suspend Colace 100 eCW1 Sodium 100 100 MG {caps ed MG ([facility] MG Oral ule_a [facility] Capsule s_nee Medical [Colace] ded} Practice Colace 100 PC) MG ferrous Ferrou suspend 1 tablet eCW 1 sulfate 325 s ed ([facility] MG Oral Sulfat [facility] Tablet e 325 Medical Ferrous (65 Practice Sulfate 325 Fe) MG PC) (65 Fe) MG Aspirin EC Aspiri suspend 1 tablet eCW1 325 MG n EC ed ([facility] 325 MG [facility] Practice PC) ferrous Ferrou suspend 1 tablet eCW 1 sulfate 325 s ed ([facility] MG Oral Sulfat [facility] Tablet e 325 Medical Ferrous (65 Practice Sulfate 325 Fe) MG PC) (65 Fe) MG Alprazolam Xanax suspend 1 tablet e CW1 0.25 MG 0.25 ed ([facility] Oral Tablet MG [facility] [Xanax] Medical Xanax 0.25 Practice MG PC) pantoprazol Proton suspend 1 tablet eCW1 e 40 MG ix 40 ed ([facility] Delayed MG [facility] Release Medical Oral Tablet Practice [Protonix] PC) Protonix 40 MG pantoprazol Proton 1.0 suspend Protonix 40 eCW1 e 40 MG ix 40 {tabl ed MG ([facility] Delayed MG et} [facility] Release Medical Oral Tablet Practice [Protonix] PC) Protonix 40 MG Docusate Colace suspend 1 capsule a s eCW1 Sodium 100 100 MG ed needed (Ricardo t MG Oral [facility] Capsule Medical [Colace] Practice Colace 100 PC) MG Alprazolam Xanax suspend 1 tablet e CW1 0.25 MG 0.25 ed ([facility] Oral Tablet MG [facility] [Xanax] Medical Xanax 0.25 Practice MG PC) Aspirin EC Aspiri suspend 1 tablet eCW1 325 MG n EC ed ([facility] 325 MG [facility] PC) Docusate Colace suspend 1 capsule a s eCW1 Sodium 100 100 MG ed needed (Ricardo t MG Oral [facility] Capsule Medical [Colace] Practice Colace 100 PC) MG ferrous Ferrou 1.0 suspend Ferrous eCW1 sulfate 325 s {tabl ed Sulfate 325 ([facility] MG Oral Sulfat et} (65 Fe) MG [place] phs Tablet e 325 Medical Ferrous (65 Practice Sulfate 325 Fe) MG PC) (65 Fe) MG Docusate Colace suspend 1 capsule a s eCW1 Sodium 100 100 MG ed needed (Ricardo t MG Oral [facility] Capsule Medical [Colace] Practice Colace 100 PC) MG ferrous Ferrou 1.0 suspend Ferrous eCW1 sulfate 325 s {tabl ed Sulfate 325 ([facility] MG Oral Sulfat et} (65 Fe) MG [place] phs Tablet e 325 Medical Ferrous (65 Practice Sulfate 325 Fe) MG PC) (65 Fe) MG pantoprazol Proton suspend 1 tablet eCW1 e 40 MG ix 40 ed ([facility] Delayed MG [facility] Release Medical Oral Tablet Practice [Protonix] PC) Protonix 40 MG ferrous Ferrou suspend 1 tablet eCW 1 sulfate 325 s ed ([facility] MG Oral Sulfat [facility] Tablet e 325 Medical Ferrous (65 Practice Sulfate 325 Fe) MG PC) (65 Fe) MG pantoprazol Proton suspend 1 tablet eCW1 e 40 MG ix 40 ed ([facility] Delayed MG [facility] Release Medical Oral Tablet Practice [Protonix] PC) Protonix 40 MG pantoprazol Proton 1.0 suspend Protonix 40 eCW1 e 40 MG ix 40 {tabl ed MG ([facility] Delayed MG et} [facility] Release Medical Oral Tablet Practice [Protonix] PC) Protonix 40 MG Alprazolam Xanax 1.0 suspend Xanax 0.25 eCW1 0.25 MG 0.25 {tabl ed MG ([facility] Oral Tablet MG et} [facility] [Xanax] Medical Xanax 0.25 Practice MG PC) Insurance Providers Payer name Policy type / Policy ID Covered Covered libertarian's Policy Plan Coverage type libertarian ID relationship to [place] Information stevens OUT OF [id number] STATE 24 Problems, Conditions, and Diagnoses Code Display Name Description Problem Type Effective Data Dates Source(s) E28.2 [id number] PCOS (polycystic Problem 08/21/2019 eCW1 (Sa int ovarian syndrome) 12:00:00 AM Arun s EDT Medical Practice ) E28.2 [id number] PCOS (polycystic Problem 08/21/2019 eCW1 (Sa int ovarian syndrome) 12:00:00 AM Arun s EDT Medical Practice ) F40.243 [id number] Fear of flying Problem 08/14/2018 eCW1 (Ricardo t 12:00:00 AM [facility] EDT Medical Practice ) F40.243 [id number] Fear of flying Problem 08/14/2018 eCW1 (Ricardo t 12:00:00 AM [facility] EDT Medical Practice ) 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 flying Fear of flying Problem 08/14/2018 eCW1 ( [facility] 12:00:00 AM [facility] EDT Medical Practice ) A74.9 [id number] Chlamydia Problem 08/03/2018 eCW1 ([facility] 12:00:00 AM [facility] EDT Medical Practice ) A74.9 [id number] Chlamydia Problem 08/03/2018 eCW1 ([facility] 12:00:00 AM [facility] EDT Medical Practice ) A74.9 Chlamydia Chlamydia Problem 08/03/2018 eCW1 ([facility] 12:00:00 AM [facility] EDT Medical Practice ) N92.6 [id number] Irregular periods Problem 03/31/2018 eCW1 (S aint 12:00:00 AM [facility] EST Medical Practice ) N92.6 [id number] Irregular periods Problem 03/31/2018 eCW1 (S aint 12:00:00 AM [facility] EST Medical Practice ) N92.6 Irregular periods Irregular periods Problem 03/31/2018 eCW1 ([facility] 12:00:00 AM [facility] EST Medical Practice ) R30.0 [id number] Dysuria Problem 03/30/2018 eCW1 ([facility] 12:00:00 AM [facility] EST Medical Practice PC) R30.0 [id number] Dysuria Problem 03/30/2018 eCW1 ([facility] 12:00:00 AM [facility] EST Medical Practice PC) R30.0 Dysuria Dysuria Problem 03/30/2018 eCW1 ([facility] 12:00:00 AM [facility] EST Medical Practice PC) N30.90 [id number] Cystitis Problem 01/09/2018 eCW1 ([facility] 12:00:00 AM [facility] EDT Medical Practice PC) N30.90 [id number] Cystitis Problem 01/09/2018 eCW1 ([facility] 12:00:00 AM [facility] EDT Medical Practice PC) N30.90 Cystitis Cystitis Problem 01/09/2018 eCW1 ([facility] 12:00:00 AM [facility] EDT Medical Practice PC) L70.9 [id number] Acne, unspecified Problem 01/03/2018 eCW1 (S aint acne type 12:00:00 AM [facility] EDT Medical Practice PC) L70.9 [id number] Acne, unspecified Problem 01/03/2018 eCW1 (S aint acne type 12:00:00 AM [facility] EDT Medical Practice PC) L70.9 Acne, unspecified Acne, unspecified Problem 01/03/2018 eCW1 ([facility] acne type acne type 12:00:00 AM [facility] EDT Medical Practice PC) L24.7 [id number] Irritant contact Problem 12/11/2017 eCW1 (Sa int dermatitis due to 12:00:00 AM Arun s plants, except food EDT Medic al Practice PC) L24.7 [id number] Irritant contact Problem 12/11/2017 eCW1 (Sa int dermatitis due to 12:00:00 AM Arun s plants, except food EDT Medic al Practice PC) L24.7 Irritant contact Irritant contact Problem 12/11/2017 eC W1 ([facility] dermatitis due to dermatitis due to 12:00:00 AM [facility] plants, except food plants, except food EDT Medical Practice PC) R21 [id number] Rash Problem 11/22/2017 eCW1 ([facility] 12:00:00 AM [facility] EDT Medical Practice PC) R21 [id number] Rash Problem 11/22/2017 eCW1 ([facility] 12:00:00 AM [facility] EDT Medical Practice ) R21 Rash Rash Problem 11/22/2017 eCW1 ([facility] 12:00:00 AM [facility] EDT Medical Practice ) R42 [id number] Dizziness Problem 09/16/2017 eCW1 ([facility] 12:00:00 AM [facility] EDT Medical Practice ) R42 [id number] Dizziness Problem 09/16/2017 eCW1 ([facility] 12:00:00 AM [facility] EDT Medical Practice ) R42 Dizziness Dizziness Problem 09/16/2017 eCW1 ([facility] 12:00:00 AM [facility] EDT Medical Practice ) J06.9 [id number] URI, acute Problem 07/06/2017 eCW1 ([facility] 12:00:00 AM [facility] EDT Medical Practice ) J06.9 [id number] URI, acute Problem 07/06/2017 eCW1 ([facility] 12:00:00 AM [facility] EDT Medical Practice ) J06.9 URI, acute URI, acute Problem 07/06/2017 eCW1 ([facility] 12:00:00 AM [facility] EDT Medical Practice ) D62 [id number] Acute Problem 11/25/2016 eCW1 ([facility] posthemorrhagic 12:00:00 AM [facility] anemia EDT Medical Practice ) D62 [id number] Acute Problem 11/25/2016 eCW1 ([facility] posthemorrhagic 12:00:00 AM [facility] anemia EDT Medical Practice ) D62 Acute Acute Problem 11/25/2016 eCW1 ([facility] posthemorrhagic posthemorrhagic 12:00:00 AM [place] ephs anemia anemia EDT Medical Practice ) I47.2 [id number] Non-sustained Problem 09/08/2016 eCW1 ([facility] ventricular 12:00:00 AM [facility] tachycardia EDT Medical Practice ) 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 12:00:00 AM Will hs artery EDT Medical Practice ) F17.200 [id number] Smoking Problem 09/08/2016 eCW1 ([facility] 12:00:00 AM [facility] EDT Medical Practice ) I47.2 [id number] Non-sustained Problem 09/08/2016 eCW1 ([facility] ventricular 12:00:00 AM [facility] tachycardia EDT Medical Practice ) 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 [id number] 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 coronary 12:00:00 AM Will hs artery EDT Medical Practice PC) F17.200 [id number] Smoking Problem 09/08/2016 eCW1 ([facility] 12:00:00 AM [facility] EDT Medical Practice PC) F17.200 Smoking Smoking Problem 09/08/2016 eCW1 ([facility] 12:00:00 AM [facility] EDT Medical Practice PC) I47.2 Non-sustained Non-sustained Problem 09/08/2016 eCW1 (Sa int ventricular ventricular 12:00:00 AM [facility] tachycardia tachycardia EDT Medical Practice PC) 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 eC W1 ([facility] origin of coronary origin of coronary 12:00:00 AM [facility] artery artery EDT Medical Practice PC) D62 Acute Acute Problem eCW1 ([facility] posthemorrhagic posthemorrhagic Erickson phs anemia anemia Medical Practice PC) I47.2 Ventricular Non-sustained Problem eCW1 (Ricardo t tachycardia ventricular [facility] tachycardia Medical Practice PC) F17.200 Nicotine Smoking Problem eCW1 ([facility] dependence, [facility] unspecified, Medical uncomplicated Practice PC ) 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 [facility] artery Medical Practice PC) N30.90 Cystitis, Cystitis Problem eCW1 ([facility] unspecified without Will hs hematuria Medical Practice PC) R30.0 Dysuria Dysuria Problem eCW1 ([facility] Medical Practice PC) R21 Rash and other Rash Problem eCW1 (Ricardo t nonspecific skin [facility] eruption Medical Practice PC) L70.9 Acne, unspecified Acne, unspecified Problem eCW1 ([facility] acne type [facility] Medical Practice PC) 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 flying Fear of flying Problem eCW1 ( [facility] Medical Practice ) N92.6 Irregular Irregular periods Problem eCW1 (S aint menstruation, [facility] unspecified Medical Practice PC) A74.9 Chlamydial Chlamydia Problem eCW1 ([facility] infection, [facility] unspecified Medical Practice PC) R42 Dizziness and Dizziness Problem eCW1 ([facility] giddiness [facility] Medical Practice PC) L24.7 Irritant contact Irritant contact Problem eC W1 ([facility] dermatitis due to dermatitis due to [facility] plants, except food plants, except food Medical Practice PC) J06.9 Acute upper URI, acute Problem eCW1 ([facility] respiratory [facility] infection, Medical unspecified Practice PC) D62 Acute Acute Problem eCW1 ( posthemorrhagic posthemorrhagic [facility] ph[facility] anemia anemia Medical Practice PC) I47.2 Ventricular Non-sustained Problem eCW1 (Ricrado t tachycardia ventricular [facility] tachycardia Medical Practice PC) F17.200 Nicotine Smoking Problem eCW1 ([facility] dependence, [facility] unspecified, Medical uncomplicated Practice PC ) 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 Medical Practice PC) N30.90 Cystitis, Cystitis Problem eCW1 ([facility] unspecified without Will hs hematuria Medical Practice PC) R30.0 Dysuria Dysuria Problem eCW1 ([facility] Medical Practice ) R21 Rash and other Rash Problem eCW1 (Ricardo t nonspecific skin [facility] eruption Medical Practice ) L70.9 Acne, unspecified Acne, unspecified Problem eCW1 ([facility] acne type [facility] Medical Practice ) 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 flying Fear of flying Problem eCW1 ( [facility] Medical Practice ) N92.6 Irregular Irregular periods Problem eCW1 (S aint menstruation, [facility] unspecified Medical Practice ) A74.9 Chlamydial Chlamydia Problem eCW1 ([facility] infection, [facility] unspecified Medical Practice PC) R42 Dizziness and Dizziness Problem eCW1 ([facility] giddiness [facility] Medical Practice ) L24.7 Irritant contact Irritant contact Problem eC W1 ([facility] dermatitis due to dermatitis due to [place] plants, except food plants, except food [facility]) J06.9 Acute upper URI, acute Problem eCW1 ([facility] respiratory [place] infection, Medical unspecified Practice PC) I47.2 Ventricular Non-sustained Problem eCW1 ([facility] t tachycardia ventricular [facility] tachycardia [facility]) F17.200 Nicotine Smoking Problem eCW1 ([facility] dependence, [facility] unspecified, Medical uncomplicated Practice PC ) 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 [facility]) L70.9 Acne, unspecified Acne, unspecified Problem eCW1 ([facility] acne type [facility] ) N30.90 Cystitis, Cystitis Problem eCW1 ([facility] unspecified without Will hs hematuria [facility] Practice [facility]) L24.7 Irritant contact Irritant contact Problem eC W1 ([facility] dermatitis due to dermatitis due to [place] plants, except food plants, except food Medical Practice PC) R21 Rash and other Rash Problem eCW1 ([facility]ardo t nonspecific skin [facility] eruption [facility]) A74.9 Chlamydial Chlamydia Problem eCW1 ([facility] infection, [facility] unspecified [facility]) R30.0 Dysuria Dysuria Problem eCW1 ([facility]) N92.6 Irregular Irregular periods Problem eCW1 (S aint menstruation, [facility] unspecified [facility]) J06.9 Acute upper URI, acute Problem eCW1 ([facility] respiratory [place] infection, Medical unspecified Practice PC) R42 Dizziness and Dizziness Problem eCW1 ([facility] giddiness [facility]) D62 Acute Acute Problem eCW1 ([facility] posthemorrhagic posthemorrhagic [facility] anemia anemia [facility]) I47.2 Ventricular Non-sustained Problem eCW1 ([facility] tachycardia ventricular [facility] tachycardia [facility]) K29.00 Acute gastritis Acute gastritis Diagnosis eCW1 ([facility] without bleeding without hemorrhage, [facility] type [facility] C) F17.200 Nicotine Smoking Problem eCW1 ([facility] dependence, [place] unspecified, Medical uncomplicated Practice PC ) 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 [facility] artery [facility] Practice [facility]) L70.9 Acne, unspecified Acne, unspecified Problem eCW1 ([facility] acne type [facility]) N30.90 Cystitis, Cystitis Problem eCW1 ([facility] unspecified without Will hs hematuria [facility]) L24.7 Irritant contact Irritant contact Problem eC W1 ([facility] dermatitis due to dermatitis due to [place] plants, except food plants, except food Medical Practice [facility]) R21 Rash and other Rash Problem eCW1 ([facility] t nonspecific skin [place] eruption [facility]) A74.9 Chlamydial Chlamydia Problem eCW1 ([facility] infection, [facility] unspecified [facility]) R30.0 Dysuria Dysuria Problem eCW1 ([facility]) N92.6 Irregular Irregular periods Problem eCW1 (S aint menstruation, [facility] unspecified [facility]) J06.9 Acute upper URI, acute Problem eCW1 ([facility] respiratory [place] infection, Medical unspecified Practice PC) R42 Dizziness and Dizziness Problem eCW1 ([facility] giddiness [facility]) D62 Acute Acute Problem eCW1 ([facility] posthemorrhagic posthemorrhagic [facility] anemia anemia [facility]) F17.200 Nicotine Smoking Problem eCW1 ([facility] dependence, [facility] unspecified, Medical uncomplicated Practice PC ) 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 [facility]) N39.0 Urinary tract Urinary tract Diagnosis eCW1 (Sa int infection, site not infection Will hs specified Medical Practice PC) R21 Rash and other Rash Problem eCW1 ([facility] t nonspecific skin [facility] eruption [facility]) L70.9 Acne, unspecified Acne, unspecified Problem eCW1 ([facility] acne type [facility]) R42 Dizziness and Dizziness Problem eCW1 ([facility] giddiness [facility]) L24.7 Irritant contact Irritant contact Problem eC W1 ([facility] dermatitis due to dermatitis due to [place] plants, except food plants, except food Medical Practice PC) N92.6 Irregular Irregular periods Problem eCW1 (S aint menstruation, [place] unspecified [facility]) N30.90 Cystitis, Cystitis Problem eCW1 ([facility] unspecified without Will hs hematuria [facility] Practice [facility]) R30.0 Dysuria Dysuria Problem eCW1 ([facility]) D62 Acute Acute Problem eCW1 ([facility] posthemorrhagic posthemorrhagic [facility] anemia anemia [facility]) J06.9 Acute upper URI, acute Problem eCW1 ([facility] respiratory [place] infection, Medical unspecified Practice PC) I47.2 Ventricular Non-sustained Problem eCW1 ([facility] tachycardia ventricular [facility] tachycardia [facility]) F17.200 Nicotine Smoking Problem eCW1 ([facility] dependence, [facility] unspecified, Medical uncomplicated Practice PC ) 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 [facility]) R21 Rash and other Rash Problem eCW1 ([facility] t nonspecific skin [place] eruption [facility]) L70.9 Acne, unspecified Acne, unspecified Problem eCW1 ([facility] acne type [facility]) R42 Dizziness and Dizziness Problem eCW1 ([facility] giddiness [facility]) L24.7 Irritant contact Irritant contact Problem eC W1 ([facility] dermatitis due to dermatitis due to [place] plants, except food plants, except food Medical Practice PC) N92.6 Irregular Irregular periods Problem eCW1 (S aint menstruation, [facility] unspecified [facility]) N30.90 Cystitis, Cystitis Problem eCW1 ([facility] unspecified without Will hs hematuria Medical Practice PC) R30.0 Dysuria Dysuria Problem eCW1 ([facility]) D62 Acute Acute Problem eCW1 ([facility] posthemorrhagic posthemorrhagic [facility] anemia anemia [facility]) J06.9 Acute upper URI, acute Problem eCW1 ([facility] respiratory [place] infection, Medical unspecified Practice PC) I47.2 Ventricular Non-sustained Problem eCW1 ([facility] t tachycardia ventricular [place] tachycardia [facility]) L24.7 Irritant contact Irritant contact Problem eC W1 ([facility] dermatitis due to dermatitis due to [place] plants, except food plants, except food Medical Practice PC) R21 Rash and other Rash Problem eCW1 ([facility] t nonspecific skin [place] eruption [facility]) J06.9 Acute upper URI, acute Problem eCW1 ([facility] respiratory [place] infection, Medical unspecified Practice PC) R42 Dizziness and Dizziness Problem eCW1 ([facility] giddiness [facility]) L70.9 Acne, unspecified Acne, unspecified Problem eCW1 ([facility] acne type [facility]) N30.90 Cystitis, Cystitis Problem eCW1 ([facility] unspecified without Will hs hematuria Medical Practice PC) 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 [facility]) R30.0 Dysuria Dysuria Diagnosis eCW1 ([facility] Practice ) I47.2 Ventricular Non-sustained Problem eCW1 ([facility] t tachycardia ventricular [facility] tachycardia [facility]) D62 Acute Acute Problem eCW1 ([facility] posthemorrhagic posthemorrhagic [facility] anemia anemia [facility]) F17.200 Nicotine Smoking Problem eCW1 ([facility] dependence, [facility] unspecified, Medical uncomplicated Practice PC ) F17.200 Nicotine Smoking Problem eCW1 ([facility] dependence, [place] unspecified, Medical uncomplicated Practice PC ) 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 [facility]) R21 Rash and other Rash Problem eCW1 ([facility] t nonspecific skin [place] eruption [facility]) L70.9 Acne, unspecified Acne, unspecified Problem eCW1 ([facility] acne type [facility]) R42 Dizziness and Dizziness Problem eCW1 ([facility] giddiness [facility]) L24.7 Irritant contact Irritant contact Problem eC W1 ([facility] dermatitis due to dermatitis due to [place] plants, except food plants, except food Medical Practice PC) N92.6 Irregular Irregular periods Problem eCW1 (S aint menstruation, [facility] unspecified [facility]) N30.90 Cystitis, Cystitis Problem eCW1 ([facility] unspecified without Will hs hematuria Medical Practice [facility]) R30.0 Dysuria Dysuria Problem eCW1 ([facility]) D62 Acute Acute Problem eCW1 ([facility] posthemorrhagic posthemorrhagic [facility] anemia anemia Medical Practice [facility]) J06.9 Acute upper URI, acute Problem eCW1 ([facility] respiratory [place] infection, Medical unspecified Practice PC) I47.2 Ventricular Non-sustained Problem eCW1 ([facility] t tachycardia ventricular [facility] tachycardia [facility]) R21 Rash and other Rash Problem eCW1 ([facility] nonspecific skin [facility] eruption [facility]) L70.9 Acne, unspecified Acne, unspecified Problem eCW1 ([facility] acne type [facility]) R42 Dizziness and Dizziness Problem eCW1 ([facility] giddiness [facility]) L24.7 Irritant contact Irritant contact Problem eC W1 ([facility] dermatitis due to dermatitis due to [place] plants, except food plants, except food Medical Practice PC) N92.6 Irregular Irregular periods Problem eCW1 (S aint menstruation, [place] unspecified [facility]) N30.90 Cystitis, Cystitis Problem eCW1 ([facility] unspecified without Will hs hematuria Medical Practice PC) R30.0 Dysuria Dysuria Problem eCW1 ([facility]) F17.200 Nicotine Smoking Problem eCW1 ([facility] dependence, [place] unspecified, Medical uncomplicated Practice PC ) 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 [facility]) D62 Acute Acute Problem eCW1 ([facility] posthemorrhagic posthemorrhagic [facility] anemia anemia [facility]) J06.9 Acute upper URI, acute Problem eCW1 ([facility] respiratory [place] infection, Medical unspecified Practice PC) I47.2 Ventricular Non-sustained Problem eCW1 ([facility] tachycardia ventricular [place] tachycardia [facility]) R21 Rash and other Rash Problem eCW1 ([facility] t nonspecific skin [facility] eruption [facility]) L70.9 Acne, unspecified Acne, unspecified Problem eCW1 ([facility] acne type [facility]) R42 Dizziness and Dizziness Problem eCW1 ([facility] giddiness [facility]) L24.7 Irritant contact Irritant contact Problem eC W1 ([facility] dermatitis due to dermatitis due to [place] plants, except food plants, except food Medical Practice PC) N92.6 Irregular Irregular periods Problem eCW1 (S aint menstruation, [place] unspecified [facility]) N30.90 Cystitis, Cystitis Problem eCW1 ([facility] unspecified without Will hs hematuria Medical Practice PC) R30.0 Dysuria Dysuria Problem eCW1 ([facility]) F17.200 Nicotine Smoking Problem eCW1 ([facility] dependence, [place] unspecified, Medical uncomplicated Practice PC ) 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 [facility]) D62 Acute Acute Problem eCW1 ( posthemorrhagic posthemorrhagic [facility] anemia anemia Medical Practice PC) J06.9 Acute upper URI, acute Problem eCW1 ([facility] respiratory [place] infection, Medical unspecified Practice PC) I47.2 Ventricular Non-sustained Problem eCW1 ([facility] tachycardia ventricular [place] tachycardia [facility]) R21 Rash and other Rash Problem eCW1 ([facility] t nonspecific skin [place] eruption [facility]) L70.9 Acne, unspecified Acne, unspecified Problem eCW1 ([facility] acne type [facility]) R42 Dizziness and Dizziness Problem eCW1 ([facility] giddiness [facility]) L24.7 Irritant contact Irritant contact Problem eC W1 ([facility] dermatitis due to dermatitis due to [place] plants, except food plants, except food Medical Practice PC) N92.6 Irregular Irregular periods Problem eCW1 (S aint menstruation, [facility] unspecified [facility]) N30.90 Cystitis, Cystitis Problem eCW1 ([facility] unspecified without Wlil hs hematuria Medical Practice PC) R30.0 Dysuria Dysuria Problem eCW1 ([facility]) F17.200 Nicotine Smoking Problem eCW1 ([facility] dependence, [place] unspecified, Medical uncomplicated Practice PC ) 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 [facility]) D62 Acute Acute Problem eCW1 ([facility] posthemorrhagic posthemorrhagic [facility] anemia anemia [facility] Practice [facility]) J06.9 Acute upper URI, acute Problem eCW1 ([facility] respiratory [place] infection, Medical unspecified Practice PC) I47.2 Ventricular Non-sustained Problem eCW1 ([facility] t tachycardia ventricular [facility] tachycardia [facility]) F17.200 Nicotine Smoking Problem eCW1 ([facility] dependence, [place] unspecified, Medical uncomplicated Practice PC ) 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 [facility]) R21 Rash and other Rash Problem eCW1 ([facility] t nonspecific skin [facility] eruption [facility]) L70.9 Acne, unspecified Acne, unspecified Problem eCW1 ([facility] acne type [facility]) R42 Dizziness and Dizziness Problem eCW1 ([facility] giddiness [facility]) L24.7 Irritant contact Irritant contact Problem eC W1 ([facility] dermatitis due to dermatitis due to [place] plants, except food plants, except food Medical Practice PC) N92.6 Irregular Irregular periods Problem eCW1 (S aint menstruation, [facility] unspecified [facility]) N30.90 Cystitis, Cystitis Problem eCW1 ([facility] unspecified without Will hs hematuria Medical Practice PC) R30.0 Dysuria Dysuria Problem eCW1 ([facility]) D62 Acute Acute Problem eCW1 ([facility] posthemorrhagic posthemorrhagic [facility] anemia anemia Medical Practice [facility]) J06.9 Acute upper URI, acute Problem eCW1 ([facility] respiratory [place] infection, Medical unspecified Practice PC) I47.2 Ventricular Non-sustained Problem eCW1 ([facility]ardo t tachycardia ventricular [facility] tachycardia Medical Practice ) Surgeries/Procedures Procedure Description Date Indications Data Source(s) Annual depression 08/21/2019 eCW1 (Ricardo t screening, 15 minutes 12:00:00 AM [facility] Medical EDT Practice ) Annual alcohol misuse 08/21/2019 eCW1 ( [facility] screening, 15 minutes 12:00:00 AM [facility] EDT Practice ) TOBACCO USE CESSATION 08/21/2019 eCW1 ( [facility] INTERMEDIATE 3-10 12:00:00 AM [facility] dical MINUTES EDT Practice PC) COLLECTION VENOUS 05/03/2019 eCW1 (Ricardo t BLOOD VENIPUNCTURE 12:00:00 AM [facility] EST Practice PC) HANDLG&/OR CONVEY OF 01/24/2019 eCW1 (S aint SPEC FOR TR OFFICE TO 12:00:00 AM [facility] Medical LAB EDT Practice ) HUMAN PAPILLOMA VIRUS 11/13/2018 eCW1 ( [facility] VACCINE QUADRIV 3 DOSE 12:00:00 AM [facility] IM EDT Practice PC) IMADM PRQ ID SUBQ/IM 11/13/2018 eCW1 (S aint NJXS 1 VACCINE 12:00:00 AM [facility] EDT Practice ) HANDLG&/OR CONVEY OF 08/21/2018 eCW1 (S aint SPEC FOR TR OFFICE TO 12:00:00 AM [facility] LAB EDT Practice ) HANDLG&/OR CONVEY OF 08/03/2018 eCW1 (S aint SPEC FOR TR OFFICE TO 12:00:00 AM [facility] LAB EDT Practice ) COLLECTION VENOUS 08/03/2018 eCW1 (Ricardo t BLOOD VENIPUNCTURE 12:00:00 AM [facility] EDT Practice ) OFFICE OUTPATIENT 08/03/2018 eCW1 (Ricardo t VISIT 15 MINUTES 12:00:00 AM [facility] EDT Practice ) HANDLG&/OR CONVEY OF 07/28/2018 eCW1 (S aint SPEC FOR TR OFFICE TO 12:00:00 AM [facility] LAB EDT Practice ) OFFICE OUTPATIENT 07/28/2018 eCW1 (Ricardo t VISIT 10 MINUTES 12:00:00 AM [facility] EDT Practice ) OFFICE OUTPATIENT 07/21/2018 eCW1 (Ricardo t VISIT 10 MINUTES 12:00:00 AM [facility] EDT Practice PC) COLLECTION VENOUS 07/21/2018 eCW1 ([facility] t B[facility]/OR CONVEY OF 07/21/2018 eCW1 (S aint SPEC FOR TR OFFICE TO 12:00:00 AM [facility] LAB EDT Practice PC) HANDLG&/OR CONVEY OF 05/04/2018 eCW1 (S aint SPEC FOR TR OFFICE TO 12:00:00 AM [facility] LAB EST Practice PC) OFFICE OUTPATIENT 05/04/2018 eCW1 (Ricardo t VISIT 10 MINUTES 12:00:00 AM [facility] EST Practice PC) COLLECTION VENOUS 05/04/2018 eCW1 (Ricardo t BLOOD VENIPUNCTURE 12:00:00 AM [facility] EST [facility] PC) OFFICE OUTPATIENT 03/30/2018 eCW1 (Ricardo t VISIT 15 MINUTES 12:00:00 AM [facility] EST Practice PC) HANDLG&/OR CONVEY OF 03/30/2018 eCW1 (S aint SPEC FOR TR OFFICE TO 12:00:00 AM [facility] EST Practice PC) COLLECTION VENOUS 03/30/2018 eCW1 (Ricardo t BLOOD VENIPUNCTURE 12:00:00 AM [facility] PC) No Known procedures No Known procedures e CW1 ([facility]) No Known procedures No Known procedures e CW1 ([facility]) No Known procedures No Known procedures e CW1 ([facility]) No Known procedures No Known procedures e CW1 ([facility] PC) No Known procedures No Known procedures e CW1 ([facility]) No Known procedures No Known procedures e CW1 ([facility]) Results ID Date Data Source HCG,TOTAL,QN 05/08/2019 12:00:00 AM EST eCW1 ([facility]) Name Value Range Interpretation Code Description Data Devorah rce(s) Supporting Document(s ) Choriogonado 502 HCG,TOTAL,QN eCW1 ([facility] Medical [Units/volum Practice PC) e] in Serum or Plasma ID Date Data Source HCG,TOTAL,QL SERUM 05/08/2019 12:00:00 AM EST eCW1 ([facility]) Name Value Range Interpretation Code Description Data Devorah rce(s) Supporting Document(s ) Choriogonado HCG,TOTAL,QL eCW1 ([facility] ( Practice ) test) [Presence] in Serum or Plasma Procedure Social History Code Duration Value Status Description Data Source(s ) Smoking 12/06/2019 Current Smoker completed Current Smoker eCW1 ( [facility] 12/06/2019 Current Smoker completed Current Smoker eCW1 ( [facility] 12:00:00 AM [facility]) Smoking 11/13/2019 Current Smoker completed Current Smoker eCW1 ( [facility] 12:00:00 AM [facility]) Smoking 10/04/2019 Current Smoker completed Current Smoker eCW1 ( [facility] 12:00:00 AM [facility]) Smoking 10/04/2019 Current Smoker completed Current Smoker eCW1 ( [facility] 12:00:00 AM [facility]) Smoking 10/04/2019 Current Smoker completed Current Smoker eCW1 ( [facility] 12:00:00 AM [facility]) Current Smoker completed Current Smoker eCW1 ( [facility]) Current Smoker completed Current Smoker eCW1 ( [facility]) Current Smoker completed Current Smoker eCW1 ( [facility]) Current Smoker completed Current Smoker eCW1 ( [facility]) Current Smoker completed Current Smoker eCW1 ( [facility]) Current Smoker completed Current Smoker eCW1 ( [facility]) Smoking UNK completed eCW1 ([facility]) Smoking Unknown if ever completed Unknown if ever eCW1 ([facility] smoked smoked [facility]) Smoking Unknown if ever completed Unknown if ever eCW1 ([facility] smoked smoked [facility]) Smoking Unknown if ever completed Unknown if ever eCW1 ([facility] smoked smoked [facility]) Smoking Unknown if ever completed Unknown if ever eCW1 ([facility]) Smoking Unknown if ever completed Unknown if ever eCW1 ([facility] smoked [facility]) Smoking Unknown if ever completed Unknown if ever eCW1 ([facility] smoked smoked [facility]) Smoking Unknown if ever completed Unknown if ever eCW1 ([facility] smoked smoked [facility]) Smoking Unknown if ever completed Unknown if ever eCW1 ([facility] smoked smoked [facility]) Smoking Unknown if ever completed Unknown if ever eCW1 ([facility] smoked smoked [facility]) Smoking Unknown if ever completed Unknown if ever eCW1 ([facility] smoked smoked [facility]) Smoking Unknown if ever completed Unknown if ever eCW1 ([facility] smoked [facility]) Smoking Unknown if ever completed Unknown if ever Ricardo Mercedes smoked smoked [facility] Smoking Unknown if ever completed Unknown if ever eCW1 ([facility] smoked smoked [facility]) Vital Signs ID Date Data Source UNK Name Value Range Interpretation Code Description Data Source(s) Diastolic blood 67 mm[Hg] 67 mm[Hg] eCW1 ([facility] pressure [facility]) Systolic blood 104 mm[Hg] 104 mm[Hg] eCW1 ([facility] t pressure [facility]) Body temperature 98.3 [degF] 98.3 [degF] eCW1 ( [facility]) Heart rate 74 /min 74 /min eCW1 ([facility] Body mass index 30.66 kg/m2 30.66 kg/m2 eCW1 (S aint (BMI) [Ratio] [facility] Practice PC) Body weight 190 [lb_av] 190 [lb_av] eCW1 ([facility] Measured [facility]) Body height 66 [in_us] 66 [in_us] eCW1 ([facility]) Body mass index kg/m2 eCW1 (Conner nt (BMI) [Ratio] [facility] Practice PC) Body weight [lb_av] eCW1 ([facility] Measured [facility]) Body height 66 [in_us] 66 [in_us] eCW1 ([facility]) Systolic blood 121 mm[Hg] 121 mm[Hg] eCW1 ([facility] t pressure [facility]) Diastolic blood 74 mm[Hg] 74 mm[Hg] eCW1 ([facility] pressure [facility]) Body height 66 [in_us] 66 [in_us] [facility] Body weight 164 [lb_av] 164 [lb_av] [facility] Systolic blood 116 mm[Hg] 116 mm[Hg] eCW1 ([facility] t pressure [facility]) Diastolic blood 60 mm[Hg] 60 mm[Hg] eCW1 ([facility] pressure [facility]) Heart rate 90 /min 90 /min eCW1 [facility] Body height 66 [in_us] 66 [in_us] eCW1 ([facility] Body weight 160 [lb_av] 160 [lb_av] eCW1 [facility] Patient Treatment Plan of Care Planned Activity Planned Date Details Description Data Source (s) valacyclovir 500 MG Oral 12/06/2019 eCW 1 ([facility] Tablet [Valtrex] 12:00:00 AM EDT Medical Practice ) valacyclovir 500 MG Oral 12/06/2019 eCW 1 ([facility] Tablet [Valtrex] 12:00:00 AM EDT Medical Practice ) Sulfamethoxazole 800 MG / 10/04/2019 eC W1 ([facility] Trimethoprim 160 MG Oral 12:00:00 AM EDT Medical Practice ) Tablet [Bactrim] Fluconazole 150 MG Oral 10/04/2019 eCW1 ([facility] Tablet 12:00:00 AM EDT Medical Prac manuel ) Fluconazole 150 MG Oral 10/04/2019 eCW1 ([facility] Tablet 12:00:00 AM EDT Medical Prac manuel ) Sulfamethoxazole 800 MG / 10/04/2019 eC W1 ([facility] Trimethoprim 160 MG Oral 12:00:00 AM EDT Medical Practice ) Tablet [Bactrim] Sulfamethoxazole 800 MG / 10/04/2019 eC W1 ([facility] Trimethoprim 160 MG Oral 12:00:00 AM EDT Medical Practice ) Tablet [Bactrim] Fluconazole 150 MG Oral 10/04/2019 eCW1 ([facility] Tablet 12:00:00 AM EDT Medical Prac manuel ) Nebulizer - 09/27/2019 eCW1 ([facility] 12:00:00 AM EDT [facility] ) Albuterol 0.83 MG/ML 09/27/2019 eCW1 ([facility] 12[facility]:00 AM [facility]) Albuterol Sulfate HFA 108 07/11/2019 eC W1 ([facility] ([facility]) MCG/ACT 12:00:00 AM EDT [facility] ) Albuterol Sulfate HFA 108 07/11/2019 eC W1 ([facility] ([facility]) MCG/ACT 12:00:00 AM [facility]T [facility]) terconazole 80 MG Vaginal 05/03/2019 eC W1 ([facility] 12:00:00 AM EST [facility] )
== END 2020-01-23 23:32 | disposition home or self-care (01) ==
LOC: JER 22:38
DX: M25.561 Pain in right knee (principal)
CPT/HCPCS: 73562-TC-RT-FY; 99283-25

== ENCOUNTER 2021-09-02 03:32 | Emergency (ER) | payer BC ==
[2021-09-02 04:19] VITALS: BMI 25.4
[2021-09-02 06:23] LABS: CALCIUM 9.5 mg/dL (8.5-10.1)
[2021-09-02 06:24] LABS: ALBUMIN 3.9 g/dl (3.4-5.0); BLOOD UREA NITROGEN 15.9 mg/dL (7-18); INR 1.09 (0.83-1.09); PROTHROMBIN TIME (PATIENT) 12.6 SEC (9.7-13.0)
[2021-09-02 06:27] LABS: ACTIVATED PTT 30.3 SECONDS (25.2-36.5); CREATININE 0.7 mg/dL (0.55-1.3)
[2021-09-02 06:29] LABS: BILIRUBIN,TOTAL 0.5 mg/dL (0.2-1); TOT PROT 7.6 g/dl (6.4-8.2)
[2021-09-02 06:31] LABS: BASO % 0.3 % (0-2.0); EOS % 0.3 % (0-4.5); HEMATOCRIT 35.3 % (32.4-45.2); HEMOGLOBIN 11.9 GM/dL (10.7-15.3); LYMPH % 17.4 % (8-40); MCH 31.1 pg (25.7-33.7); MCHC 33.7 g/dl (32.0-36.0); MEAN CELL VOLUME 92.1 fl (80-96); MEAN PLT VOLUME 9.1 fl (7.5-11.1); MONO % 6.7 % (3.8-10.2); NEUT % 75.3 % (42.8-82.8); PLATELET COUNT 356 10^3/uL (134-434); RBC 3.83 M/mm3 (3.60-5.2); WHITE BLOOD COUNT 9.9 K/mm3 (4.0-10.0)
[2021-09-02 08:09] VITALS: BP 118/65; PULSE 85; TEMP 97.5
[2021-09-02 08:37] LABS: EPI CELLS 16 /uL (0-25.1); HYALINE CASTS 0 /uL (0-3.1); PH,URINE 5.5 (5.0-8.0); URINE APPEARANCE CLOUDY; URINE BACTERIA 4 /uL (0-1359); URINE BILIRUBIN NEGATIVE (NEGATIVE); URINE COLOR YELLOW; URINE GLUCOSE (UA) NEGATIVE (NEGATIVE); URINE KETONE TRACE (NEGATIVE); URINE LEUK ESTERASE TRACE (NEGATIVE); URINE NITRITE NEGATIVE (NEGATIVE); URINE PROTEIN 1+ (NEGATIVE); URINE RBC 6137 /uL (0-23.9); URINE WBC 27 /uL (0-25.8)
== END 2021-09-02 08:12 | disposition home or self-care (01) ==
LOC: JER 03:32
DX: N93.9 Abnormal uterine and vaginal bleeding, unspecified (principal)
CPT/HCPCS: 36415; 80053; 81003; 84703; 85025; 85610; 85730; 86850; 86900; 86901; 87086; 93005; 93010; 99285-25